=== PATIENT | female | born 1985 | race Caucasian/White ===

== ENCOUNTER 2020-03-02 17:07 | Emergency (ER) | payer OTHER, MEDICAID, SELFPAY ==
[2020-03-02 17:38] VITALS: BP 109/61; PULSE 89; RESP 16; TEMP 37; O2SAT 100; BMI 22.2
--- NOTE | 2020-03-02 17:57 | DI.US.S_ITS ---
PROCEDURE: US OB <= 14 WEEKS FETUS INDICATIONS: BLEEDING; HX ECTOPIC OUTSIDE/PRIOR DATING DATA: Last menstrual period (LMP): 01/10/20 . LMP-based estimated date of delivery (SHAAN): 10/16/20 . First dating scan (date and location): 03/02/20 . Estimated date of delivery (SHAAN) from first dating scan: 10/26/20 . TECHNIQUE: Real-time scanning was performed of the fetus and maternal pelvic organs, with image documentation. Endovaginal scanning was also performed to better visualize the fetus and maternal ovaries. COMPARISON: None. FINDINGS: Embryo: Single living intrauterine fetus is present with a crown-rump length measuring 0.4 cm, 6 weeks 0 days. There is grossly present cardiac motion however unable to detect with M-mode probably due to early gestational age. Yolk sac is present. Measurement variability in dating: +/- 4 weeks by LMP, +/- 7 days by mean sac diameter (use before 6 weeks gestation if crown-rump length not able to be measured), +/- 5 days by crown-rump length (up to 8 weeks 6 days gestation), +/- 7 days by crown-rump length (up to 13 weeks 6 days gestation). Maternal organs: Ovaries unremarkable except for a 1.8 cm presumed left-sided corpus luteum . Limited images through the kidneys demonstrate no hydronephrosis. IMPRESSION: Single living intrauterine fetus. Gestational age measures approximately 6 weeks 0 days, with the SHAAN of 10/26/20. heart rate unmeasurable , which may be due to early gestational age. Recommend follow-up 1 week pelvic ultrasound. Dictated by: Ramírez Barksdale M.D. on 03/02/2020 at 19:45 Approved by: Ramírez Barksdale M.D. on 03/02/2020 at 19:49
[2020-03-02 18:27] LABS: Add Manual Diff / Slide Review NO; Basophils Absolute Auto 100 /uL (0-100); Basophils Percent Auto 0.7 % (0-2); Eosinophils Absolute Auto 400 /uL (0-450); Eosinophils Percent Auto 4.5 % (2-4); Hemoglobin 12.1 g/dL (12.0-16.0); Lymphocytes Absolute Auto 2300 /uL (1100-4500); Mean Corpuscular HGB Conc 34.6 % (30-36); Mean Corpuscular Hemoglobin 31.2 PG (26-34); Mean Corpuscular Volume 90.1 fL (80-100); Monocytes Absolute Auto 700 /uL (0-900); Monocytes Percent Auto 8.2 % (3-14); Neutrophils Absolute Auto 5400 /uL (1500-7000); Neutrophils Percent Auto 60.6 % (50-75); Platelet Count 319 X10^3/uL (150-400); Red Blood Cell Count 3.89 X10^6/uL (4.0-5.2); Red Cell Distribution Width 12.7 % (11.6-14.8); White Blood Cell Count 8.9 X10^3/uL (4.5-11.0)
--- NOTE | 2020-03-02 18:28 | ED.PREGNANCY ---
HPI - General Chief complaint: OB/Uterine Contractions Stated complaint: 6wks preg, bleeding now Time Seen by Provider: 03/02/20 18:27 Source: patient Mode of arrival: Ambulatory Limitations: no limitations History of Present Illness HPI Narrative: 35-year-old (1 TAB 1 ectopic ) at 6 weeks based on ovulation and LMP with a planned presents with bleeding for the last 12 hours. She initially noted some spotting and now is having more red bleeding. Not noticing any cramping at this time. Was not associated with sex or any other type of trauma. She is not having any acute urinary symptoms and has not been recently constipated or having any hemorrhoidal bleeding. Date of Last Menstrual Period: 01/20/20 Patient : Yes Related Data Previous Rx's Medication Instructions Recorded azithromycin [Zithromax Z-Toby] 1,000 mg PO QDAY #4 tab 05/22/16 Allergies Allergy/AdvReac Type Severity Reaction Status Date / Time cefaclor [CEFACLOR] Allergy Unknown Unverified 03/02/20 17:45 Review of Systems Review of Systems Narrative: Pertinent positive and negative findings as per HPI Remainder of review of systems is otherwise unremarkable for Constitutional: Fevers, chills, weakness ENT: No sore throat, neck pain, ear pain CV: Chest pain, palpitations, dyspnea on exertion Respiratory: Cough, wheeze, dyspnea GI: Nausea, vomiting, diarrhea, change in bowel habits, black or bloody stools : Dysuria, hematuria, flank pain Neuro: Syncope, dizziness, tingling PMFSH - Past Medical History [employer] history: Reports Therapeutic and Ectopic Date of Last Menstrual Period: 01/20/20 Patient : Yes Exam Narrative Exam Narrative: General: Healthy appearing, tearful but Able to give a complete and coherent history. Well-nourished well-developed HEENT: Moist mucous membranes, normal sclera with reactive pupils, Respiratory: Lungs are clear to auscultation, no wheezing no rales no rhonchi. Full and symmetrical air movement Cardiac: Regular rate and rhythm no murmurs no bruits Abdomen: Soft nontender good bowel tones, no flank pain Skin: Warm and dry, no rashes Neurologic: Grossly neurologically intact with no obvious asymmetries or abnormalities Genital: mild red blood from vagina, worse after pelvic us probe Psych: Cooperative, appropriate insight and affect Initial Vital Signs Initial Vital Signs: Vital Signs Temperature 98.6 F 03/02/20 17:38 Pulse Rate 89 03/02/20 17:38 Respiratory Rate 16 03/02/20 17:38 Blood Pressure 109/61 03/02/20 17:38 Pulse Oximetry 100 03/02/20 17:38 Course Orders Ordered: ED Orders 03/02/20 17:55 Urine Culture Stat Urine Microscopic Stat 03/02/20 17:57 US OB <= 14 weeks fetus Stat 03/02/20 18:17 ABO RH Type Stat Complete Blood Count AUTO DIFF Stat Comprehensive Metabolic Panel Stat HCG Quantitative /Beta subunit Stat Vital Signs Vital signs: Vital Signs - 8 hr 03/02/20 17:38 Temperature 98.6 F Pulse Rate 89 Respiratory Rate 16 Blood Pressure 109/61 Pulse Oximetry 100 MDM - OB/Uterine Contractions Medical Records Attestation: I reviewed the patient's medical records. Lab Data Attestation: I reviewed the patient's lab results. Result diagrams: 03/02/20 18:17 03/02/20 18:17 Labs: Lab Results 03/02/20 03/02/20 03/02/20 Range/Units 17:55 18:17 18:17 WBC 8.9 (4.5-11.0) X10^3/uL RBC 3.89 L (4.0-5.2) X10^6/uL Hgb 12.1 (12.0-16.0) g/dL Hct 35.0 L (36-46) % MCV 90.1 (80-100) fL MCH 31.2 (26-34) PG MCHC 34.6 (30-36) % RDW 12.7 (11.6-14.8) % Plt Count 319 (150-400) X10^3/uL Neut % (Auto) 60.6 (50-75) % Lymph % (Auto) 26.0 (25-40) % [place] % (Auto) 8.2 (3-14) % Eos % (Auto) 4.5 H (2-4) % Baso % (Auto) 0.7 (0-2) % Neut # (Auto) 5400 (4308-8721) /uL Lymph # (Auto) 2300 (4435-8508) /uL [place] # (Auto) 700 (0-900) /uL Eos # (Auto) 400 (0-450) /uL Baso # (Auto) 100 (0-100) /uL Sodium 136 L (137-145) mmol/L Potassium 3.6 (3.4-5.1) mmol/L Chloride 101 (98-107) mmol/L Carbon Dioxide 31 (22-32) mmol/L BUN 10 (7-17) mg/dL Creatinine 0.73 (0.52-1.04) mg/dL Estimated GFR > 60.0 (>60) mL/min BUN/Creatinine Ratio 13.7 (6-22) Glucose 63 L (70-100) mg/dL Calcium 9.0 (8.4-10.2) mg/dL Total Bilirubin 0.4 (0.2-1.3) mg/dL AST 24 (14-36) IU/L ALT 13 (<35) IU/L Alkaline Phosphatase 61 (38-126) U/L Total Protein 7.3 (6.3-8.2) g/dL Albumin 4.2 (3.5-5.0) g/dL Globulin 3.1 (1.7-4.1) g/dL Albumin/Globulin Ratio 1.4 (1.0-2.8) HCG, Quant 3681 mIU/mL Urine RBC 0-1/hpf (0-5/HPF) Urine WBC 10-30/hpf H (0-5/HPF) Ur Squamous Epith Cells 1-5 /hpf (0-5/HPF) Ur Transition Epith Cell 5-10/hpf H (0-5/HPF) Urine Bacteria Few (2-10) H (None) Urine Mucus 2+ H (Negative) Ur Culture Indicated? Specimen cultured Blood Type 03/02/20 Range/Units 18:17 WBC (4.5-11.0) X10^3/uL RBC (4.0-5.2) X10^6/uL Hgb (12.0-16.0) g/dL Hct (36-46) % MCV (80-100) fL MCH (26-34) PG MCHC (30-36) % RDW (11.6-14.8) % Plt Count (150-400) X10^3/uL Neut % (Auto) (50-75) % Lymph % (Auto) (25-40) % [place] % (Auto) (3-14) % Eos % (Auto) (2-4) % Baso % (Auto) (0-2) % Neut # (Auto) (1198-0190) /uL Lymph # (Auto) (7244-9418) /uL [place] # (Auto) (0-900) /uL Eos # (Auto) (0-450) /uL Baso # (Auto) (0-100) /uL Sodium (137-145) mmol/L Potassium (3.4-5.1) mmol/L Chloride (98-107) mmol/L Carbon Dioxide (22-32) mmol/L BUN (7-17) mg/dL Creatinine (0.52-1.04) mg/dL Estimated GFR (>60) mL/min BUN/Creatinine Ratio (6-22) Glucose (70-100) mg/dL Calcium (8.4-10.2) mg/dL Total Bilirubin (0.2-1.3) mg/dL AST (14-36) IU/L ALT (<35) IU/L Alkaline Phosphatase (38-126) U/L Total Protein (6.3-8.2) g/dL Albumin (3.5-5.0) g/dL Globulin (1.7-4.1) g/dL Albumin/Globulin Ratio (1.0-2.8) HCG, Quant mIU/mL Urine RBC (0-5/HPF) Urine WBC (0-5/HPF) Ur Squamous Epith Cells (0-5/HPF) Ur Transition Epith Cell (0-5/HPF) Urine Bacteria (None) Urine Mucus (Negative) Ur Culture Indicated? Blood Type O Positive Point of Care Testing Test Results Positive Urine Dip Bedside Urine Glucose Negative Bedside Urine Bilirubin + 1 Bedside Urine Ketone +/- 5 Urine Specific [place] 1.025 Bedside Urine Occult Blood +++ Bedside Urine pH 6.0 Bedside Urine Protein +/- 15 Bedside Urine Urobilinogen - Negative Bedside Urine Nitrite - Negative Bedside Urine Leukocytes +++ 500 Esterase MDM Narrative Medical decision making narrative: at 6 weeks with vaginal bleeding without cramping. She is O-positive will not need a RhoGAM shot. Ultrasound shows an intrauterine 6 week fetus with heart rate.. HCG is of appropriate for 6 weeks. Threatened will need repeat hCG in 3 days. Questions are answered. Patient is safe for home discharge Discharge Plan Departure Patient Disposition: Home Clinical Impression: , spontaneous threatened Instructions: DI for Miscarriage Activity Restrictions/Additional Instructions: Thank you for coming in today Any time there is bleeding or cramping with a there is a concern for miscarriage. Today, you do have a viable fetus in your uterus with a hormone level that is consistent with her dates. At this point all we have to do is wait and see what your body is going to tell us. If the bleeding slows and stops your may proceed beautifully. The bleeding is heavier and moves on to regular menstrual type bleeding then this is definitely a miscarriage. Repeating a hormone level(quantitative beta hCG) in 3 days can help us better understand what is happening. If the number doubles from today that is a sign of a healthy . If it is not increasing that fast or is decreasing that is fairly clear confirmation that this is going to progress to a miscarriage. At 6 weeks, our bodies are usually able to manage miscarriage as simply a very heavy period and you likely would not need a D&C. Please call [facility] tomorrow to let the OBGYN with who we have scheduled your new OB appointment know that your having bleeding anywhere seen in the emergency department. Let them know that a repeat quantitative hCG was recommended in 3 days so they can schedule that for you as an outpatient. If you have worsening bleeding, cramping or feeling dizzy or lightheaded or develop new or concerning symptoms please feel free to return to the emergency department Prescriptions: No Action azithromycin [Zithromax Z-Toby] 250 MG tablet 1,000 mg PO QDAY Qty: 4 RF: 0
[2020-03-02 18:39] LABS: RBC Urine 0-1/HPF (0-5/HPF); Squamous Epithelial Cell Urine 1-5 /HPF (0-5/HPF); Transitional Epi Cells Urine 5-10/HPF (0-5/HPF); WBC Urine 10-30/HPF (0-5/HPF)
[2020-03-02 18:40] LABS: Bacteria Urine Few (2-10); Culture Indicated Urine Specimen Cultured; Mucus Urine 2+ (Negative)
[2020-03-02 18:50] LABS: Alanine Aminotransferase 13 IU/L (<35); Albumin 4.2 g/dL (3.5-5.0); Albumin Globulin Ratio 1.4 (1.0-2.8); Alkaline Phosphatase 61 U/L (38-126); Aspartate Aminotransferase 24 IU/L (14-36); BUN Creatinine Ratio 13.7 (6-22); Bilirubin Total 0.4 mg/dL (0.2-1.3); Blood Urea Nitrogen 10 mg/dL (7-17); Carbon Dioxide 31 mmol/L (22-32); Chloride 101 mmol/L (98-107); Estimated Glomerular Filt Rate > 60.0 mL/min (>60); Globulin 3.1 g/dL (1.7-4.1); Glucose 63 mg/dL (70-100); HEMOLYSIS < 15 (0-50); Potassium 3.6 mmol/L (3.4-5.1); Sodium 136 mmol/L (137-145); Total Protein 7.3 g/dL (6.3-8.2)
[2020-03-02 19:15] LABS: HCG Quantitative /Beta subunit 3681 mIU/mL
[2020-03-02 19:45] VITALS: BP 125/75; PULSE 84; RESP 14; O2SAT 98
== END 2020-03-02 19:40 | disposition home or self-care (01) ==
PROVIDERS: Emergency Medicine; Emergency Provider Emergency Medicine
DX: O20.0 Threatened abortion (principal); Z3A.01 Less than 8 weeks gestation of pregnancy
CPT/HCPCS: 36415; 76801; 76817; 80053; 81003; 81015; 81025; 84702; 85025; 86900; 86901; 87077; 87086; 87186; 99283; 99284

== ENCOUNTER 2020-03-26 14:46 | Emergency (ER) | payer OTHER, MEDICAID, SELFPAY ==
[2020-03-26 14:48] VITALS: BP 136/85; PULSE 65; RESP 22; TEMP 36.6; O2SAT 96
== END 2020-03-26 15:12 | disposition left against medical advice (07) ==
PROVIDERS: Emergency Provider Emergency Medicine
DX: S61.412A Laceration without foreign body of left hand, initial encounter (principal)
CPT/HCPCS: 99281

== ENCOUNTER 2020-04-10 02:25 | Emergency (ER) | payer OTHER, MEDICAID, SELFPAY ==
--- NOTE | 2020-04-10 02:32 | ED_ITS ---
HPI - Female Genitourinary General Chief complaint: Urogenital-Female Stated complaint: something is wrong with my lady area Time Seen by Provider: 04/10/20 02:25 Source: patient Mode of arrival: Ambulatory Limitations: no limitations History of Present Illness HPI Narrative: 35F daily smoker with history of spontaneous on 03/02. She just finished her menses and states it was normal for her. She is here due to redness, some swelling, itching and irritation of her external genitalia. She denies vaginal discharge or pelvic pain. She's had no dysuria, frequency, or urgency. She denies fever, chills, or back pain. She is otherwise well and free of complaint. Related Data Previous Rx's Medication Instructions Recorded azithromycin [Zithromax Z-Toby] 1,000 mg PO QDAY #4 tab 05/22/16 fluconazole 150 mg PO Q3D #2 tab 04/10/20 Allergies Allergy/AdvReac Type Severity Reaction Status Date / Time cefaclor [CEFACLOR] Allergy Unknown Verified 04/10/20 02:38 Review of Systems Constitutional Constitutional: Denies chills, Denies fatigue, Denies fever(s), Denies frequent falls, Denies lethargy and Denies weakness Eyes Eyes: Denies change in vision, Denies eye discharge, Denies irritation and Denies loss of vision ENT Ears, Nose, Mouth, and Throat: Denies change in voice, Denies dizziness, Denies neck pain, Denies sore throat and Denies throat swelling Cardiovascular Cardiovascular: Denies chest pain, Denies irregular heart rhythm, Denies lightheadedness, Denies palpitations, Denies dyspnea, Denies dyspnea on exertion and Denies orthopnea Respiratory Respiratory: Denies cough, Denies dyspnea, Denies dyspnea on exertion and Denies wheezing Gastrointestinal Gastrointestinal: Denies abdominal pain, Denies change in bowel habits, Denies diarrhea, Denies nausea and Denies vomiting Genitourinary Genitourinary: Reports vaginal pruritus Musculoskeletal Musculoskeletal: Denies neck pain and Denies numbness Integumentary/Breasts Skin/Breast: Denies pruritus, Denies erythema, Denies rash and Denies wounds Neurologic Neurologic: Denies behavioral changes, Denies confusion, Denies dizziness, Denies frequent falls, Denies loss of vision, Denies numbness and Denies weakness Psychiatric Psychiatric: Denies anxiety, Denies behavioral changes, Denies confusion, Denies depression, Denies homicidal ideation and Denies suicidal ideation Endocrine Endocrine: Denies fatigue, Denies flushing and Denies palpitations Hematologic/Lymphatic Hematologic/Lymphatic: Denies easy bruising Allergic/Immunologic Allergic/Immunologic: Denies urticaria, Denies throat swelling and Denies wheezing Patient History tobacco type: cigarettes Substance Use Type: marijuana Exam Narrative Exam Narrative: GEN: AOx3 and in mild distress EYES: Pupils are equal, round, and reactive to light and accommodation. Extraoccular muscles are intact bilaterally. There is no subconjunctival hemorrhage or exudate. CHEST: Lungs are clear to auscultation bilaterally and free of wheezes, rales, or rhonchi. Heart rate is regular rhythm, there are no murmurs, clicks, rubs, or gallops. There is no chest wall tenderness. ABD: Abdomen is soft and nontender. There is no guarding or rebound. Bowel sounds are normal in all 4 quadrants. There is no mass or organomegaly. PELVIC: minimal erythema with itching or external genitalia. No obvious drainage, or bleeding on pelvic. Performed with patient permission and female nursing pressurised container filler at the bedside. EXT: Full painless ROM of all extremities with no loss of sensation or strength. SKIN: Warm, pink, and dry. No erythema or rash Initial Vital Signs Initial Vital Signs: Vital Signs Temperature 97.6 F 04/10/20 02:34 Pulse Rate 101 H 04/10/20 02:34 Respiratory Rate 16 04/10/20 02:34 Blood Pressure 128/79 04/10/20 02:34 Pulse Oximetry 100 04/10/20 02:34 Course Orders Ordered: ED Orders 04/10/20 02:38 Urinalysis and Microscopic Stat 04/10/20 03:05 Chlamydia/Gonoc/Myco Genital Stat Genital Culture Stat DORIS Prep Stat Discontinued Medications Fluconazole (Diflucan) 150 mg PO NOW ONE Stop: 04/10/20 03:10 Last Admin: 04/10/20 03:16 Dose: Not Given Documented by: CAROL Vital Signs Vital signs: Vital Signs - 8 hr 04/10/20 02:34 Temperature 97.6 F Pulse Rate 101 H Respiratory Rate 16 Blood Pressure 128/79 Pulse Oximetry 100 MDM - Female Genitourinary Lab Data Labs: Lab Results 04/10/20 Range/Units 02:38 Urine Color Yellow Urine Appearance Clear Urine pH 5.0 (4.5-8.0) Ur Specific [place] >=1.030 H (1.000-1.035) Urine Protein Trace H (Negative) Urine Glucose (UA) Negative (Negative) g/dL Urine Ketones 1+ H (NEGATIVE) Urine Occult Blood 2+ H (Negative) Urine Nitrate Negative (Negative) Urine Bilirubin Negative (NEGATIVE) Urine Urobilinogen 0.2 (0.2) E.U./dL Ur Leukocyte Esterase Negative (NEGATIVE) Urine RBC None seen (0-5/HPF) Urine WBC 1-5/hpf (0-5/HPF) Ur Squamous Epith Cells 5-10 /hpf H (0-5/HPF) Urine Bacteria Moderate (10-30) H (None) Ur Culture Indicated? Cult not indicated Point of Care Testing Test Results Negative Urine Dip Bedside Urine Glucose Negative Bedside Urine Bilirubin - Negative Bedside Urine Ketone +/- 5 Urine Specific [place] 1.030 Bedside Urine Occult Blood + Bedside Urine pH 6.0 Bedside Urine Protein - Negative Bedside Urine Urobilinogen - Negative Bedside Urine Nitrite - Negative Bedside Urine Leukocytes - Negative Esterase Discharge Plan Departure Patient Disposition: Home Clinical Impression: Candidal dermatitis Discharge Date/Time: 04/10/20 03:16 Instructions: Vaginal Yeast Infection Activity Restrictions/Additional Instructions: *You have been diagnosed with [ vaginal irritation, likely from mild yeast infection] *What to do: *Take medications as directed: Prescription sent to [facility] at your request *Follow up with your primary care provider in 2-3 days, call for an appointment. Let them know you were seen in the Emergency Department and that we ask that you be seen in follow up. If you don't have a primary doctor please consider calling the [facility] Resource Line mentioned below *Return to ER if you should have any new, worsening or concerning symptoms Prescriptions: New fluconazole 150 mg tablet 150 mg PO Q3D Qty: 2 RF: 0 No Action azithromycin [Zithromax Z-Toby] 250 MG tablet 1,000 mg PO QDAY Qty: 4 RF: 0 Referrals: [facility] [Outside]
[2020-04-10 02:34] VITALS: BP 128/79; PULSE 101; RESP 16; TEMP 36.4; O2SAT 100; BMI 21.9
[2020-04-10 02:53] LABS: RBC Urine None Seen (0-5/HPF)
[2020-04-10 02:54] LABS: Appearance Urine UA CLEAR; Bilirubin Urine UA NEGATIVE (NEGATIVE); Color Urine UA YELLOW; Glucose Urine UA NEGATIVE (Negative); Ketones Urine UA 1+ (NEGATIVE); Leukocyte Esterase Urine UA NEGATIVE (NEGATIVE); Nitrite Urine UA NEGATIVE (Negative); Occult Blood Urine UA 2+ (Negative); Protein Urine UA TRACE (Negative); Specific Gravity Urine UA >=1.030 (1.000-1.035); Urobilinogen Urine UA 0.2 E.U./dL (0.2)
[2020-04-10 03:31] LABS: Bacteria Urine Moderate (10-30); Culture Indicated Urine Cult Not Indicated; Squamous Epithelial Cell Urine 5-10 /HPF (0-5/HPF); WBC Urine 1-5/HPF (0-5/HPF)
[2020-04-13 09:36] LABS: Chlamydia trachomatis Positive (Negative); Mycoplasma genitalium Negative (Negative); Neisseria gonorrhoeae Negative (Negative)
== END 2020-04-10 03:16 | disposition home or self-care (01) ==
PROVIDERS: Emergency Provider Emergency Medicine
DX: B37.3 Candidiasis of vulva and vagina (principal)
CPT/HCPCS: 81001; 81003; 81025; 87070; 87205; 87220; 87252; 87491; 87591; 99282; 99283

== ENCOUNTER → 2021-06-07 07:52 | Outpatient (CLI) | payer OTHER, MEDICAID, SELFPAY ==
--- NOTE | 2021-06-07 07:55 | DI.US.S_ITS ---
PROCEDURE: US OB LIMITED INDICATIONS: DATING OUTSIDE/PRIOR DATING DATA: First dating scan (date and location): 06/07/2021. Estimated date of delivery (SHAAN) from first dating scan: 11/22/2021. The calculations are made using the ultrasound SHAAN of 11/22/2021. TECHNIQUE: Real-time scanning was performed of the fetus, with image documentation and biometric measurements. COMPARISON: None. FINDINGS: General: A single living intrauterine gestation is present. Presentation: Vertex. Placenta: Placental position is posterior , without previa. Amniotic fluid index: 10.3 cm, normal range is 5-24 cm. heart rate: 173 beats per minute. Maternal cervical canal: 3.0 cm long. Normal lower limit is 2.5 cm. biometrics: Biparietal diameter: 16 weeks 2 days Head circumference: 15 weeks 5 days Abdominal circumference: 16 weeks 4 days Femur length: 15 weeks 3 days Composite gestational age from present scan: 16 weeks 0 days Estimated weight and percentile: 142 g Other: Limited anatomic survey secondary to early gestational age. IMPRESSION: Single living IUP with age estimated at 16 weeks 0 days corresponding to ultrasound SHAAN of 11/22/2021. Limited anatomic survey secondary to early gestational age. Follow-up recommended. We strive to produce accurate, complete, and clear reports of imaging services. To assist us in improving patient care, this report was composed using standard report templates and voice recognition software. Therefore, it may contain abnormal punctuation, insertions and/or omissions. Occasional wrong-word or sound-alike substitutions may occur. Though we review the report and make efforts to correct it, we do recommend that the report be read carefully in proper context to recognize any text inaccuracies. Dictated by: Jaydon Serra [facility] Interpreted: Александр Edwards MD on 06/07/2021 at 10:08 Transcribed by: CHERYL on 06/07/2021 at 10:11 Approved by: Александр Edwards M.D. on 06/07/2021 at 13:51
== END ==
PROVIDERS: Referring Provider Obstetrics & Gynecology; Visit Provider Obstetrics & Gynecology
DX: Z36.87 Encounter for antenatal screening for uncertain dates (principal); Z3A.16 16 weeks gestation of pregnancy
CPT/HCPCS: 76815

== ENCOUNTER → 2021-06-13 17:36 | Outpatient (CLI) | payer OTHER, MEDICAID, SELFPAY ==
[2021-06-13 18:13] LABS: Add Manual Diff / Slide Review NO; Basophils Absolute Auto 0 /uL (0-100); Basophils Percent Auto 0.3 % (0-2); Eosinophils Absolute Auto 300 /uL (0-450); Eosinophils Percent Auto 3.1 % (2-4); Hematocrit 32.6 % (36-46); Hemoglobin 11.5 g/dL (12.0-16.0); Lymphocytes Absolute Auto 2200 /uL (1100-4500); Lymphocytes Percent Auto 20.2 % (25-40); Mean Corpuscular HGB Conc 35.2 % (30-36); Mean Corpuscular Hemoglobin 31.2 PG (26-34); Mean Corpuscular Volume 88.6 fL (80-100); Monocytes Absolute Auto 700 /uL (0-900); Monocytes Percent Auto 6.2 % (3-14); Neutrophils Absolute Auto 7700 /uL (1500-7000); Neutrophils Percent Auto 70.2 % (50-75); Platelet Count 359 X10^3/uL (150-400); Red Blood Cell Count 3.68 X10^6/uL (4.0-5.2)
[2021-06-14 06:10] LABS: Varicella IgG Antibody 702 index (Immune >165)
[2021-06-14 08:17] LABS: RPR Screen Non Reactive (Non Reactive)
[2021-06-14 18:09] LABS: Hepatitis B Surface Antigen NEGATIVE s/c (NEGATIVE); Rubella Antibody IgG 62.8 IU/mL (>15)
[2021-06-14 18:10] LABS: HIV 1 & 2 Ab/Ag 4th Gen Combo NEGATIVE (NEGATIVE); Hep C Virus Ab w/Reflex Quant NEGATIVE s/c (NEGATIVE)
== END ==
PROVIDERS: Referring Provider Obstetrics & Gynecology; Visit Provider Obstetrics & Gynecology
DX: Z34.80 Encounter for supervision of other normal pregnancy, unspecified trimester (principal)
CPT/HCPCS: 36415; 80055; 86787; 86803; 86850; 86900; 86901; 87389

== ENCOUNTER → 2021-07-03 13:36 | Outpatient (CLI) | payer OTHER, MEDICAID, SELFPAY ==
[2021-07-03 15:56] LABS: UR Morphine/Opiate cutoff 300 Negative (Negative); Ur Creatinine Normal (Normal); Ur Specific Gravity Normal (Normal); Urine Amphetamines Positive (Negative); Urine Cocaine Negative (Negative); Urine Methamphetamines Positive (Negative); Urine Tetrahydrocannabinol Negative (Negative); Urine pH Normal (Normal)
[2021-07-03 15:57] LABS: Urine Barbiturates Negative (Negative); Urine Benzodiazepines Negative (Negative); Urine MDMA Negative (Negative); Urine Methadone Negative (Negative); Urine Oxycodone Negative (Negative); Urine Phencyclidine Negative (Negative); Urine Tricyclic Antidepressant Negative (Negative)
[2021-07-03 17:19] LABS: Urine N gonorrhoeae NOT DETECTED
[2021-07-03 17:29] LABS: Urine Chlamydia NOT DETECTED
== END ==
PROVIDERS: Referring Provider Obstetrics & Gynecology; Visit Provider Obstetrics & Gynecology
DX: Z34.82 Encounter for supervision of other normal pregnancy, second trimester (principal)
CPT/HCPCS: 80305; 87491; 87591

== ENCOUNTER → 2021-07-31 12:12 | Outpatient (CLI) | payer OTHER, MEDICAID, SELFPAY ==
--- NOTE | 2021-07-31 12:13 | DI.US.S_ITS ---
PROCEDURE: US OB >= 14 WEEKS FETUS INDICATIONS: 20 Week Anatomy Scan OUTSIDE/PRIOR DATING DATA: Last menstrual period (LMP): Known. LMP-based estimated date of delivery (SHAAN): Unknown. First dating scan (date and location): 06/07/2021. Estimated date of delivery (SHAAN) from first dating scan: 11/22/2021. TECHNIQUE: Real-time scanning was performed of the fetus, with image documentation and biometric measurements. Endovaginal scanning: Non COMPARISON: None. FINDINGS: General: A single living intrauterine gestation is present. Presentation: Variable Placenta: Placental position is posterior , without previa. Amniotic fluid index: 16.3 cm, normal range is 5-24 cm. heart rate: 165 beats per minute. Maternal cervical canal: 3.9 cm long. Normal lower limit is 2.5 cm. biometrics: Biparietal diameter: 5.7 cm, 23 week 2 day Head circumference: 20.7 cm, 22 week 6 day Abdominal circumference: 18.9 cm, 23 week 5 day Femur length: 4 cm, 23 week 0 day Clinically estimated gestational age: 23 week 5 day Composite gestational age from present scan: 23 week 2 day Estimated weight and percentile: 586 g, 26th percentile Anatomic survey: Neuro: Ventricles are non-dilated at less than 10 mm. Cisterna magna is normal at 3-11 mm. Cerebellum is normal in size and morphology. Nuchal skin fold: Normal at less than 6 mm between 14-21 weeks gestational age. Face: Nose and lips, facial profile are normal. Spine: No evidence for spina bifida. Heart: 4-chambered heart is present, with normal ventricular outflow tracts. Diaphragm: Diaphragm is intact. Stomach: Left-sided stomach is present. Kidneys: No hydronephrosis. Normal is less than 5 mm in 2nd trimester, less than 7 mm in 3rd trimester. Cord: 3-vessel cord . Insertion not well seen. Bladder: Normal in size. Extremities: All 4 extremities identified. IMPRESSION: Single live intrauterine consistent with 23 week 2 day gestation by current ultrasound. Placental cord insertion not well seen. Remainder of the anatomy within normal limits. Approved by: Jon Prabhakar M.D. on 07/31/2021 at 12:35
== END ==
PROVIDERS: Referring Provider Obstetrics & Gynecology; Visit Provider Obstetrics & Gynecology
DX: Z34.82 Encounter for supervision of other normal pregnancy, second trimester (principal); Z3A.23 23 weeks gestation of pregnancy
CPT/HCPCS: 76811

== ENCOUNTER → 2021-08-01 16:15 | Outpatient (CLI) | payer OTHER, MEDICAID, SELFPAY ==
[2021-08-01 19:23] LABS: UR Morphine/Opiate cutoff 300 Positive (Negative); Ur Creatinine Normal (Normal); Ur Specific Gravity Normal (Normal); Urine Amphetamines Positive (Negative); Urine Barbiturates Negative (Negative); Urine Benzodiazepines Positive (Negative); Urine Cocaine Negative (Negative); Urine MDMA Positive (Negative); Urine Methadone Negative (Negative); Urine Methamphetamines Positive (Negative); Urine Oxycodone Negative (Negative); Urine Phencyclidine Negative (Negative); Urine Tetrahydrocannabinol Negative (Negative); Urine Tricyclic Antidepressant Positive (Negative); Urine pH Normal (Normal)
== END ==
PROVIDERS: Visit Provider Obstetrics & Gynecology
DX: Z34.82 Encounter for supervision of other normal pregnancy, second trimester (principal); Z3A.23 23 weeks gestation of pregnancy
CPT/HCPCS: 80305

== ENCOUNTER → 2021-08-29 19:13 | Outpatient (ROUT) | payer OTHER, MEDICAID, SELFPAY ==
[2021-08-29 19:28] LABS: Ur Creatinine Normal (Normal); Ur Specific Gravity Normal (Normal); Urine Tetrahydrocannabinol Negative (Negative); Urine pH Normal (Normal)
[2021-08-29 19:29] LABS: UR Morphine/Opiate cutoff 300 Negative (Negative); Urine Amphetamines Positive (Negative); Urine Barbiturates Negative (Negative); Urine Benzodiazepines Negative (Negative); Urine Cocaine Negative (Negative); Urine MDMA Negative (Negative); Urine Methadone Negative (Negative); Urine Methamphetamines Positive (Negative); Urine Oxycodone Negative (Negative); Urine Phencyclidine Negative (Negative); Urine Tricyclic Antidepressant Negative (Negative)
== END ==
PROVIDERS: Visit Provider Obstetrics & Gynecology
DX: Z34.83 Encounter for supervision of other normal pregnancy, third trimester (principal); Z3A.27 27 weeks gestation of pregnancy; F15.10 Other stimulant abuse, uncomplicated
CPT/HCPCS: 80305

== ENCOUNTER 2021-10-09 03:57 | Outpatient (CLI) | payer OTHER, MEDICAID, SELFPAY | END 2021-10-09 04:57 | disposition home or self-care (01) | LOC: LABOR 04:01 → OB 10-11 07:25 | PROVIDERS: PCP Obstetrics & Gynecology; Referring Provider Obstetrics & Gynecology; Visit Provider Obstetrics & Gynecology | DX: Z03.71 Encounter for suspected problem with amniotic cavity and membrane ruled out (principal); O09.523 Supervision of elderly multigravida, third trimester; Z3A.33 33 weeks gestation of pregnancy | CPT/HCPCS: 59025; G0378; G0379 ==

== ENCOUNTER 2021-11-12 03:16 | Outpatient (CLI) | payer OTHER, MEDICAID, SELFPAY ==
[2021-11-12 04:26] VITALS: BP 123/80; PULSE 100; RESP 20; TEMP 36.7
== END 2021-11-12 04:20 | disposition home or self-care (01) ==
LOC: LABOR 03:27 → OB 16:04
PROVIDERS: PCP Obstetrics & Gynecology; Referring Provider Obstetrics & Gynecology; Visit Provider Obstetrics & Gynecology
DX: Z03.71 Encounter for suspected problem with amniotic cavity and membrane ruled out (principal); O99.323 Drug use complicating pregnancy, third trimester; F15.90 Other stimulant use, unspecified, uncomplicated; Z3A.38 38 weeks gestation of pregnancy
CPT/HCPCS: 59025; 84112; G0378; G0379

== ENCOUNTER 2021-11-13 15:54 | Inpatient (IN) | payer OTHER, MEDICAID, SELFPAY ==
[2021-11-13 16:47] LABS: Add Manual Diff / Slide Review NO; Basophils Absolute Auto 100 /uL (0-100); Basophils Percent Auto 0.5 % (0-2); Eosinophils Absolute Auto 400 /uL (0-450); Eosinophils Percent Auto 2.6 % (2-4); Hematocrit 33.6 % (36-46); Hemoglobin 11.7 g/dL (12.0-16.0); Lymphocytes Absolute Auto 1800 /uL (1100-4500); Lymphocytes Percent Auto 11.2 % (25-40); Mean Corpuscular HGB Conc 34.7 % (30-36); Mean Corpuscular Hemoglobin 30.3 PG (26-34); Mean Corpuscular Volume 87.4 fL (80-100); Monocytes Absolute Auto 1000 /uL (0-900); Monocytes Percent Auto 6.1 % (3-14); Neutrophils Absolute Auto 12900 /uL (1500-7000); Neutrophils Percent Auto 79.6 % (50-75); Platelet Count 326 X10^3/uL (150-400); Red Blood Cell Count 3.84 X10^6/uL (4.0-5.2); Red Cell Distribution Width 14.5 % (11.6-14.8); White Blood Cell Count 16.2 X10^3/uL (4.5-11.0)
[2021-11-13 17:37] LABS: Ur Creatinine Normal (Normal); Ur Specific Gravity Normal (Normal); Urine Tetrahydrocannabinol Negative (Negative); Urine pH Normal (Normal)
[2021-11-13 17:38] LABS: UR Morphine/Opiate cutoff 300 Negative (Negative); Urine Amphetamines Positive (Negative); Urine Barbiturates Negative (Negative); Urine Benzodiazepines Negative (Negative); Urine Cocaine Negative (Negative); Urine MDMA Negative (Negative); Urine Methadone Negative (Negative); Urine Methamphetamines Positive (Negative); Urine Oxycodone Negative (Negative); Urine Phencyclidine Negative (Negative); Urine Tricyclic Antidepressant Negative (Negative)
[2021-11-13] MEDS: LACTATED RINGERS 1,000 ML 1000 ML IV (17:40)
[2021-11-13 17:41] LABS: COVID19 -Nasal RAPID Negative (Negative)
[2021-11-13] MEDS: OXYTOCIN PREMIX 30 UNIT/500 ML PLAST..BAG 200 UNIT IV (18:13)
--- NOTE | 2021-11-13 18:34 | PM.OBHP.IH.1 ---
OB HPI Date/Time Date of admission: 11/13/21 Date Patient Seen: 11/13/21 Time Patient Seen: 16:00 History of Present Condition Chief complaint: Eval of Labor SHAAN Calculator Estimated Delivery Date Method Current WG Current Estimate 11/22/21 Ultrasound #2 38w 5d Other Estimates 11/27/21 Ultrasound #1 38w 0d Estimated Gestational Age (weeks): 38+5 : 9 Para: 2 care: limited care, initiated at week # (19), number of visits (3) and pounds weight gain (37) Dating criteria OB: LMP confirmed by 2nd trimester US Ultrasounds: normal mid trimester US Medical complications OB: other (Drug use) Preadmission Labs Last OB Lab Results: Blood Type O Positive 06/13/21 17:43 06/13/21 Antibody Screen Negative 06/13/21 17:43 06/13/21 Hematocrit 33.6 % (36-46) L 11/13/21 16:25 11/13/21 Hemoglobin 11.7 g/dL (12.0-16.0) L 11/13/21 16:25 11/13/21 Hepatitis B Surface Antigen Negative s/c (NEGATIVE) 06/13/21 17:43 06/13/21 Hepatitis C Antibody Negative s/c (NEGATIVE) 06/13/21 17:43 06/13/21 Rubella Antibody 62.8 IU/mL (>15) 06/13/21 17:43 06/13/21 Varicella-Zoster IgG Antibody 702 index (Immune >165) 06/13/21 17:43 06/13/21 Group B Streptococcus (PCR) Pending 11/13/21 16:20 11/13/21 -: Chlamydia screen: negative and Gonorrhea screen: negative Prior (ies) Past Pregnancies Del. Date GA/Weeks Labor Lgth Wt Sex Route Outcome Anesthesia Place Delv Breastfeed Preg Comp Name 07/24/05 8+ elective 05/25/08 8+ elective 05/23/10 8 spontaneous 06/27/10 6 ectopic 07/04/11 37 2 5 lb 7 oz Female vaginal live - none IH 4 wks delivery Chidi 07/18/15 35 3 4 lb 14 oz Female vaginal live - epidural [facility] [place] 6-8 wks delivery Martha 04/30/17 8+ elective 06/01/20 6 spontaneous Delivery Date: 07/24/05 Last Updated by: Jamison Bo & Emely Delivery Date: 05/25/08 Last Updated by: Jamison Bo & Emely Delivery Date: 06/27/10 Last Updated by: Sandra Tinajero R.N. surgical - unsure which side Evaluation Evaluation Baseline heart rate: 135 Variability: Average (6-10) monitor accelerations: Present Monitor Decelerations: Variable Contraction Frequency (minutes): 3 Uterine Contraction Intensity: Strong/Firm Status: Category ll Dilation (cm): 4 Effacement (%): 100 station: 0 PFSH Medical History (Updated 08/29/21 @ 16:53 by Wilton Zhang MD) COVID-19 (~04/11/21) Ectopic Left patella fracture PID (acute pelvic inflammatory disease) UTI (urinary tract infection) Surgical History (Updated 06/13/21 @ 10:24 by Sandra Tinajero, RN) Ectopic Fx ankle Fx femur shaft-open History of dilation and curettage Family History (Updated 06/13/21 @ 08:40 by Sandra Tinajero RN) Father Diabetes mellitus ETOH abuse Social History marital status: unmarried,single number of children: 2 household members: friend(s) and none lives independently: Yes caregiver/support person: No housing: other (living with a friend) pets and animals: No education level: vocational occupational status: employed current occupational exposures/hazards: No seatbelt use: always water heater temp set < 120 deg: Yes working smoke detector in home: Yes fire extinguisher in home: Yes carbon monox detector in home: Yes firearms in home: No do you feel safe at home: Yes Smoking Status: Current every day smoker Smokeless tobacco user: other (vaping) quit status: considering quitting alcohol intake: former (ocassional) substance use type: former substance user (marijuana & Meth) during the past year weight has: remained stable well-balanced diet: daily or most days daily servings fruits/ve-4 caffeine: Yes (Rarely) eating out: rarely or never Type(s) of exercise: additional (Work active) Meds Home Medications and Allergies Home Medications Medication Instructions Recorded Confirmed Type prenat.vits,trice,ggq-tumo-wezqr 1 tab PO DAILY #1 tab 06/13/21 08/29/21 Rx Allergies Allergy/AdvReac Type Severity Reaction Status Date / Time cefaclor [CEFACLOR] Allergy Unknown Verified 08/29/21 16:18 OB Exam Narrative Exam Narrative: Generally: No acute distress FH: 37 weeks Ext: trace edema Objective Labs Result Diagrams: 11/13/21 16:25 Labs: Laboratory Results - last 24 hr 11/13/21 11/13/21 11/13/21 15:55 16:25 16:53 WBC 16.2 H RBC 3.84 L Hgb 11.7 L Hct 33.6 L MCV 87.4 MCH 30.3 MCHC 34.7 RDW 14.5 Plt Count 326 Neut % (Auto) 79.6 H Lymph % (Auto) 11.2 L [place] % (Auto) 6.1 Eos % (Auto) 2.6 Baso % (Auto) 0.5 Neut # (Auto) 02921 H Lymph # (Auto) 1800 [place] # (Auto) 1000 H Eos # (Auto) 400 Baso # (Auto) 100 U Opiates 300ng/mL cut Negative Ur Oxycodone Screen Negative Urine Methadone Screen Negative Ur Barbiturates Screen Negative U Tricyclic Antidepress Negative Ur Phencyclidine Scrn Negative Ur Amphetamines Screen Positive H U Methamphetamines Scrn Positive H Ur MDMA Scrn (Ecstasy) Negative U Benzodiazepines Scrn Negative Urine Cocaine Screen Negative U Marijuana (THC) Screen Negative SARS-CoV-2 (PCR) Negative Assessment and Plan Assessment and Plan Assessment and Plan narrative: Assessment: 36 year old at 38 +5 wks gestation with limited care in active labor Pos for Meth Plan: Expectant management to Peds notified Epidural was offered Time Spent with Patient Total time spent with greater than 50% in coordination of care (as documented) at patient's floor/unit and/or counseling patient:: 15-24 minutes
--- NOTE | 2021-11-13 18:42 | P.PCNOB_ITS ---
Events: Other (drug use, limited PNC) Labor & Delivery Delivery date: 11/13/21 Intrapartal Events: None Cervical ripening method: none Induction method: none Delivery monitor: external FHT and external uterine Route of delivery: Episiotomy description: None L&D Laceration Description: None Quantitative Blood Loss: 400 Anesthesia Type: None Complications: None Narrative: Patient complete and pushed from 8 cm to complete in 3 minutes. At 1808, a live male delivered spontaneously in the [place] presentation. No nuchal cord. The remainder of the body delivered without difficulty and was placed on mom's abdomen. After 2 minutes, the cord was double clamped and cut due to brisk vaginal bleeding. Cord bloods were obtained. Pitocin was given in the IV fluids. The placenta delivered intact with a three-vessel cord at 18 14. Fundus was massaged to firm. No lacerations. QBL 400 cc. Apgars 9 at 1 minute and 9 at 5 minutes. Mom and infant stable to recovery. weight 6 lb 13 oz. [place] Baby 1: gender: Male Presentation: vertex Position: Right Occiput Anterior Placenta delivery description: Spontaneous Cord Vessel Description: 3 Vessels score (1 min): 9 score (5 min): 9 weight: 6 lb 13 oz Plan for aftercare: Routine care
[2021-11-13 18:56] LABS: Strep Grp B PCR POS for Grp B Strep
[2021-11-13] MEDS: KETOROLAC 30 MG/ML VIAL IV (19:11)
[2021-11-13] MEDS: ACETAMINOPHEN 325 MG TABLET 650 MG PO (19:11)
[2021-11-13] MEDS: TRANEXAMIC ACID 1,000 MG in SODIUM CHLORIDE 0.9% 100 ML 200 MG IV (21:45)
[2021-11-14] MEDS: KETOROLAC 30 MG/ML VIAL IV ×2 (00:54→07:39)
[2021-11-14] MEDS: ACETAMINOPHEN 325 MG TABLET 650 MG PO ×3 (00:54→23:15)
[2021-11-14 06:09] LABS: Hematocrit 28.1 % (36-46); Hemoglobin 9.4 g/dL (12.0-16.0)
[2021-11-14 07:39] VITALS: TEMP 36.7
[2021-11-14] MEDS: PRENATAL VIT,CALC/IRON/FOLIC 1 TABLET 1 TAB PO (09:46)
[2021-11-14] MEDS: DOCUSATE 100 MG CAPSULE PO (09:46)
[2021-11-14] MEDS: LACTATED RINGERS 1,000 ML 100 ML IV ×2 (10:45→23:17)
[2021-11-14 16:29] VITALS: TEMP 36.2
[2021-11-14] MEDS: IBUPROFEN 600 MG TABLET PO ×2 (16:29→23:15)
--- NOTE | 2021-11-14 18:10 | PM.OBPN.1 ---
Subjective - OB Subjective Patient comments: no complaints, pain well controlled, tolerating diet and flatus present baby status: doing well [place] feeding status: exclusively bottle feeding Date Patient Seen: 11/14/21 Time Patient Seen: 18:13 Interval history: PPD #1 and doing well. is also stable and doing well. CPS visited today and discussions are ongoing re: aftercare for mother and baby. Exam Vital Signs (past 8 hours): - 11/14/21 16:29 Temperature 97.1 F L Const General: cooperative and comfortable Nutritional Appearance: average body habitus Orientation: alert and oriented x3 HENMT Head: normocephalic and atraumatic Ears: hearing grossly normal bilaterally Eyes General: appearance normal, both eyes and all related structures Neck Neck: normal visual inspection Resp Effort & Inspection: normal respiratory effort and able to speak in complete sentences GI Inspection: normal to inspection Palpation: soft, no hepatosplenomegaly and mass (Firm, minimally tender fundus, U-4) External Female Exam: other (Deferred) Extrem General: no calf tenderness Psych Appearance: grossly normal Objective Labs Result Diagrams: 11/14/21 05:45 Labs: Laboratory Results - last 24 hr 11/13/21 11/13/21 11/14/21 16:20 16:25 05:45 Hgb 9.4 L Hct 28.1 L Group B Strep (PCR) Pos for grp b strep H Blood Type O Positive Antibody Screen Negative Assessment & Plan Plan day: 1 plan OB: routine care Comments: Will keep overnight due complex social situation/maternal drug abuse with likely discharge of the mother in the AM but will no doubt remain under observation for several more days. Time Spent With Patient Time: Total time spent is greater than 50% in coordination of care (as documented) at patient's floor/unit and/or counseling patient: Time with patient: 15-24 minutes
[2021-11-15] MEDS: IBUPROFEN 600 MG TABLET PO ×2 (05:16→12:01)
[2021-11-15] MEDS: ACETAMINOPHEN 325 MG TABLET 650 MG PO ×2 (05:16→12:01)
--- NOTE | 2021-11-15 22:02 | PM.OBPN.1 ---
Subjective - OB Subjective Patient comments: no complaints, pain well controlled and tolerating diet baby status: doing well, nursing well and other (CPS involved) [place] feeding status: breast and bottle feeding Date Patient Seen: 11/15/21 Time Patient Seen: 09:30 Interval history: Patient is day # 2 status post spontaneous vaginal delivery. Mom's tox screen positive for methamphetamine. CPS appointment via zoom tomorrow. Patient awaiting placement in rehab. Exam Narrative Exam Narrative: Generally: Patient is sitting up in bed, no acute distress Fundus: Firm at U -2 Extremities: No edema, negative Homans Objective Labs Result Diagrams: 11/14/21 05:45 Assessment & Plan Plan day: 2 plan OB: routine care and other (Await CPS and rehab placement) Time Spent With Patient Time: Total time spent is greater than 50% in coordination of care (as documented) at patient's floor/unit and/or counseling patient: Time with patient: less than 15 minutes
[2021-11-16] MEDS: IBUPROFEN 600 MG TABLET PO ×3 (03:59→17:22)
[2021-11-16] MEDS: ACETAMINOPHEN 325 MG TABLET 650 MG PO ×3 (03:59→17:22)
--- NOTE | 2021-11-16 16:32 | CM.SWNOTE ---
ARCHEOLOGIST Note ARCHEOLOGIST receives patient consult information from BECKI Lopez. Patient is 36 y/o female who gave to baby tereso Gambino on 11/13/21. Patient tested positive for Methamphetamines upon arrival to . L&D contact CPS for intake referral. Per L&D RN Mala, CPS GAVIN Acosta (Ph. # [phone]) assessed patient and baby for safety and set up Family Team Decision Making Meeting that took place today. Per Mala SEYMOUR, CPS determined that baby can d/c when medically clear with patient with safety plan in place. Patient to seek out [facility] inpatient treatment and reside with safety plan participants who will supervise and monitor patient's contact with baby. Plan: Patient to d/c to home when medically clear, patient plans to stay at with baby until baby is d/c. Patient to f/u with CPS safety plan and recommended [facility] inpatient services. Bonita Hull, SENIOR IT BUSINESS ANALYST
--- NOTE | 2021-11-17 08:18 | PM.OBDS.1 ---
Discharge Providers Provider Date of admission: 11/13/21 15:54 Discharge Date: 11/16/21 Primary care physician: Wilton Zhang MD Consults: 11/13/21 19:41 Consult to DIRECTOR INSTRUCTIONAL MATERIAL - Military Lawyer Routine Comment: 11/14/21 18:24 Consult to Food And Beverage Service Manager Routine Comment: Discharge provider: Isela Gonzalez MD Summary Hospital Course Date Patient Seen: 11/16/21 Time Patient Seen: 13:30 Diagnoses: 38-,5/7 weeks gestation Limited care Methamphetamine use Spontaneous vaginal delivery Hospital Course: Patient is a 36-year-old 3 para 3 who presented to Labor and delivery with ruptured membranes at 38-,5/7 weeks gestation. She had had 3 visits. She admitted to methamphetamine use. She had a spontaneous vaginal delivery without complication. She had no lacerations. She was discharged on day # 3. CPS is involved. Patient is going to rehab post discharge from the hospital. Peripartum Data Delivery Method: Natural Vaginal Laceration Description: None Episiotomy description: None Procedures: Spontaneous vaginal delivery complications: other (Psychosocial issues requiring prolonged stay) 1: Gender: Male Disposition of : home Status at Discharge Cognitive/behavioral status at discharge: oriented Overall status at discharge: patient is progressing back to baseline Time Spent with Patient Time attestation: Total time spent providing and/or coordinating discharge services: Time spent: Less than 30 minutes Objective Labs Result Diagrams: 11/14/21 05:45 Exam Narrative Exam Narrative: Generally: Patient lying in bed, no acute distress Fundus: Firm at U -2 Extremities: No edema, negative Homans Discharge Plan Discharge Plan Patient Disposition: Home Provider Discharge Comment: Call with fever, chills, or bleeding vaginally more than a pad in an hour Ibuprofen 600 mg every 6 hours as needed for cramping Tylenol 650 mg every 6 hours as needed Discharge orders & Medications Prescriptions: Continued prenat.vits,trice,[id number] Tablet 1 tab PO DAILY Qty: 1 0RF Follow up/Referrals: Isela Gonzalez MD [Physician] - 12/31/21 3:45 pm Diet/Activity/Treatments Diet: Regular Activity: Nothing in the vagina for 6 weeks Skin/Wound/Dressing Care Report to your healthcare provider any signs of infection, such as:: chills, fever, increased pain, unusual drainage and unusual redness Visit Report/Discharge Packet Instructions: DI for Labor and Delivery, Vaginal Discharge Data Primary Care Provider: Wilton Zhang
== END 2021-11-16 17:35 | disposition home or self-care (01) | DRG 560 ==
PROVIDERS: Obstetrics & Gynecology; Admitting Provider Obstetrics & Gynecology; PCP Obstetrics & Gynecology; Referring Provider Obstetrics & Gynecology; Visit Provider Obstetrics & Gynecology
DX: O99.324 Drug use complicating childbirth (principal); F15.90 Other stimulant use, unspecified, uncomplicated; O09.33 Supervision of pregnancy with insufficient antenatal care, third trimester; Z3A.38 38 weeks gestation of pregnancy; Z37.0 Single live birth; O99.334 Smoking (tobacco) complicating childbirth; F17.290 Nicotine dependence, other tobacco product, uncomplicated; Z20.822 Contact with and (suspected) exposure to COVID-19; Z03.71 Encounter for suspected problem with amniotic cavity and membrane ruled out; O99.323 Drug use complicating pregnancy, third trimester
CPT/HCPCS: 36415; 59025; 59050; 59409; 80305; 84112; 85014; 85018; 85025; 86850; 86900; 86901; 87635; 87653; C9803; G0378; G0379; J1885; J2590

== ENCOUNTER → 2022-05-10 14:45 | Outpatient (CLI) | payer OTHER, MEDICAID, SELFPAY ==
[2022-05-10 15:48] LABS: COVID19 -Nasal RAPID Negative (Negative)
== END ==
PROVIDERS: Visit Provider Obstetrics & Gynecology
DX: Z20.822 Contact with and (suspected) exposure to COVID-19 (principal); Z01.812 Encounter for preprocedural laboratory examination
CPT/HCPCS: 87635; C9803

== ENCOUNTER → 2022-05-13 11:17 | Day surgery (SDC) | payer OTHER, MEDICAID, SELFPAY ==
[2022-05-09 13:42] VITALS: BMI 24.5
== END ==
PROVIDERS: Referring Provider Obstetrics & Gynecology; Visit Provider Obstetrics & Gynecology

== ENCOUNTER 2022-05-14 11:03 | Emergency (ER) | payer OTHER, MEDICAID, SELFPAY ==
[2022-05-14] VITALS (15 sets, daily range): BP systolic 94–147; BP diastolic 56–88; PULSE 80–122; RESP 12–22; TEMP 38.1; O2SAT 93–99; BMI 21.9
[2022-05-14] MEDS: IBUPROFEN 400 MG TABLET 800 MG PO (11:42)
[2022-05-14] MEDS: ACETAMINOPHEN 325 MG TABLET 975 MG PO (11:42)
--- NOTE | 2022-05-14 11:49 | DI.RAD.S_ITS ---
PROCEDURE: XR CHEST 1V INDICATIONS: eval for PNA TECHNIQUE: One view of the chest was acquired. COMPARISON: None. FINDINGS: Surgical changes and devices: None. Lungs and pleura: Lungs are clear. No pleural effusions or pneumothorax. Mediastinum: Mediastinal contours appear normal. Heart size is normal. Bones and chest wall: No suspicious bony lesions. Overlying soft tissues appear unremarkable. IMPRESSION: No acute pulmonary process. Dictated by: Joyce Aldana M.D. on 05/14/2022 at 13:38 Approved by: Joyce Aldana M.D. on 05/14/2022 at 13:38
--- NOTE | 2022-05-14 11:59 | DI.CT.S_ITS ---
PROCEDURE: CT ABDOMEN PELVIS W CON INDICATIONS: Generalized abdominal pain TECHNIQUE: After the administration of IV contrast, axial sections were acquired from the lung bases to the pubic symphysis. Coronal and sagittal reformats were performed. For radiation dose reduction, the following was used: automated exposure control, adjustment of mA and/or kV according to patient size. COMPARISON: None. FINDINGS: Image quality: Excellent. Lung bases: Unremarkable. Heart: No significant findings. ABDOMEN: Liver: Liver is mildly enlarged with steatosis. Gallbladder: Unremarkable. Biliary ducts: Unremarkable. Pancreas: Unremarkable. Spleen: Unremarkable. Adrenal Glands: Unremarkable. Kidneys and Ureters: Unremarkable. Stomach and Bowel: Stomach, small bowel loops, and colon are unremarkable. Peritoneum: No abnormal intraperitoneal fluid. No free air. Ventral Wall: No hernia. Abdominal Nodes: No retroperitoneal or mesenteric adenopathy by size criteria. Vessels: Aorta and inferior vena cava are normal in size. PELVIS: Pelvic Organs: Unremarkable. Bladder: Unremarkable. Pelvic Nodes: No enlarged lymph nodes. Miscellaneous: No inguinal hernias are seen. Bones: Unremarkable. IMPRESSION: No acute intra-abdominal or pelvic process. Dictated by: Joyce Aldana M.D. on 05/14/2022 at 13:44 Approved by: Joyce Aldana M.D. on 05/14/2022 at 13:49
--- NOTE | 2022-05-14 11:59 | ED.GENADULT ---
HPI - General Adult General Chief complaint: Urogenital-Female Stated complaint: bad menstural cramping since morning Time Seen by Provider: 05/14/22 11:10 Source: patient Mode of arrival: Ambulatory History of Present Illness HPI narrative: Patient is a 37-year-old female who is here for evaluation of what was initially described as menstrual cramping. She states that her menstrual cycle actually ended approximately 1 week ago. She has had an ectopic in the past. She was scheduled to have a LEEP procedure done yesterday however this was canceled because she ate prior to the procedure. She states she woke up this morning with chills and body aches in the abdominal discomfort. No vaginal bleeding. No change in bowel habits. No urinary symptoms. No nausea vomiting. No skin rashes. Related Data Previous Rx's Medication Instructions Recorded prenat.vits,rtice,umi-gfov-kpeea 1 tab PO DAILY #1 tab 06/13/21 metronidazole 500 mg tablet 500 mg PO BID 7 days #14 tabs 05/14/22 nitrofurantoin 100 mg PO Q12H 5 days #10 caps 05/14/22 monohydrate/macrocrystals 100 mg capsule (Macrobid) Allergies Allergy/AdvReac Type Severity Reaction Status Date / Time cefaclor [CEFACLOR] Allergy Unknown Verified 05/14/22 13:03 Review of Systems Review of Systems ROS Unobtainable: All systems reviewed & are unremarkable except as noted in HPI and below Patient History Medical History COVID-19 (~04/11/21) Ectopic Left patella fracture PID (acute pelvic inflammatory disease) UTI (urinary tract infection) Surgical History (Updated 06/13/21 @ 10:24 by Sandra Tinajero RN) Ectopic Fx ankle Fx femur shaft-open History of dilation and curettage Family History (Updated 06/13/21 @ 08:40 by Sandra Tinajero RN) Father Diabetes mellitus ETOH abuse Social History marital status: unmarried,single number of children: 2 household members: friend(s) and none lives independently: Yes caregiver/support person: No housing: other (living with a friend) pets and animals: No education level: vocational occupational status: employed current occupational exposures/hazards: No seatbelt use: always water heater temp set < 120 deg: Yes working smoke detector in home: Yes fire extinguisher in home: Yes carbon monox detector in home: Yes firearms in home: No do you feel safe at home: Yes Smoking Status: Unknown if ever smoked Smokeless tobacco user: other (vaping) quit status: considering quitting alcohol intake: former (ocassional) substance use type: former substance user (marijuana & Meth) during the past year weight has: remained stable well-balanced diet: daily or most days daily servings fruits/ve-4 caffeine: Yes (Rarely) eating out: rarely or never Type(s) of exercise: additional (Work active) Smoking Status: Unknown if ever smoked tobacco type: cigarettes Substance Use Type: marijuana Exam Initial Vital Signs Initial Vital Signs: Vital Signs Temperature 100.5 F H 05/14/22 11:13 Pulse Rate 114 H 05/14/22 11:13 Respiratory Rate 22 05/14/22 11:13 Blood Pressure 147/88 H 05/14/22 11:13 Pulse Oximetry 99 05/14/22 11:13 Oxygen Delivery Method 05/14/22 11:13 Const General: cooperative, comfortable and No ill appearing HENCT Head: normal to inspection and normocephalic Resp Effort & Inspection: normal respiratory effort Auscultation: clear to auscultation bilaterally Cardio Rate: tachycardic Rhythm: regular rhythm GI Inspection: non-distended Palpation: No guarding and tender (Diffuse) External Female Exam: normal external appearance Speculum Exam - Vagina: abnormal vaginal discharge, not erythematous and No vaginal bleeding Speculum Exam - Cervix: nontender Bimanual Exam- Vagina & Uterus: normal palpation, No tender and no cervical motion tenderness OB/External & Speculum: No vaginal bleeding Back/Spine/Pelvis Other: Lower back discomfort Skin General: no rashes or lesions noted Neuro General: patient alert, patient awake, patient oriented x3 and moves all extremities Extrem General: capillary refill normal Psych Other: Anxious, Course Orders Ordered: ED Orders 05/14/22 11:23 Covid-19 + FLU A/B + RSV - PCR Stat 05/14/22 11:49 XR chest 1V Stat 05/14/22 11:59 CT abdomen pelvis w con Stat 05/14/22 12:10 Complete Blood Count AUTO DIFF Stat Comprehensive Metabolic Panel Stat Lactate (Lactic Acid) Stat Lipase Stat Procalcitonin Stat 05/14/22 12:47 Blood Culture Stat 05/14/22 15:05 DORIS Prep Stat Wet Prep Tric BV Destiny Stat 05/14/22 15:35 Chlamydia Gonorrhea PCR -URINE Stat Urine Culture Stat Urine Microscopic Stat Discontinued Medications Acetaminophen (Acetaminophen 325 Mg Tablet) 975 mg PO NOW ONE Stop: 05/14/22 11:31 Last Admin: 05/14/22 11:42 Dose: 975 mg Documented By: FLORY Azithromycin (Azithromycin 250 Mg Tablet) 1,000 mg PO NOW ONE Stop: 05/14/22 16:56 Last Admin: 05/14/22 17:08 Dose: 1,000 mg Documented By: MAIK Sodium Chloride (Normal Saline 0.9%) 1,000 mls @ 125 mls/hr IV CONT TOMAS Last Infusion: 05/14/22 17:19 Dose: 0 mls/hr Documented By: Admin: 05/14/22 12:30 Dose: 125 mls/hr Documented By: FLORY Ceftriaxone Sodium 1,000 mg/ (Sodium Chloride) 100 mls @ 200 mls/hr IV NOW ONE Stop: 05/14/22 12:52 Last Admin: 05/14/22 13:18 Dose: Not Given Documented By: FLORY Piperacillin Sod/Tazobactam (Sod 4.5 gm/ Sodium Chloride) 100 mls @ 200 mls/hr IV NOW ONE Stop: 05/14/22 13:16 Last Infusion: 05/14/22 14:17 Dose: 0 mls/hr Documented By: Admin: 05/14/22 13:34 Dose: 200 mls/hr Documented By: FLORY Ibuprofen (Ibuprofen 400 Mg Tablet) 800 mg PO NOW ONE Stop: 05/14/22 11:31 Last Admin: 05/14/22 11:42 Dose: 800 mg Documented By: FLORY Morphine Sulfate (Morphine 4 Mg/Ml Inj) 4 mg IV NOW ONE Stop: 05/14/22 12:00 Last Admin: 05/14/22 14:42 Dose: Not Given Documented By: MAIK Vital Signs Vital signs: Vital Signs - 8 hr 05/14/22 11:13 05/14/22 12:18 05/14/22 12:23 Temperature 100.5 F H Pulse Rate 114 H 122 H Respiratory Rate 22 Blood Pressure 147/88 H 118/60 Pulse Oximetry 99 96 Oxygen Delivery Method Room Air 05/14/22 12:23 05/14/22 12:30 05/14/22 12:30 Temperature Pulse Rate 117 H 116 H Respiratory Rate 12 19 Blood Pressure 120/58 L Pulse Oximetry 96 95 Oxygen Delivery Method 05/14/22 13:00 05/14/22 13:00 05/14/22 13:30 Temperature Pulse Rate 114 H 100 H Respiratory Rate 22 19 Blood Pressure 118/64 Pulse Oximetry 93 94 Oxygen Delivery Method Room Air 05/14/22 14:00 05/14/22 14:28 05/14/22 14:28 Temperature Pulse Rate 97 H 96 H Respiratory Rate 19 16 Blood Pressure 104/61 Pulse Oximetry 96 97 Oxygen Delivery Method Room Air Room Air 05/14/22 14:30 05/14/22 14:30 05/14/22 15:00 Temperature Pulse Rate 95 H Respiratory Rate 19 Blood Pressure 106/57 L 100/58 L Pulse Oximetry 95 Oxygen Delivery Method Room Air 05/14/22 15:00 05/14/22 15:30 05/14/22 15:30 Temperature Pulse Rate 97 H 93 H Respiratory Rate 15 Blood Pressure 104/61 Pulse Oximetry 99 98 Oxygen Delivery Method Room Air 05/14/22 16:00 05/14/22 16:00 05/14/22 16:30 Temperature Pulse Rate 80 Respiratory Rate 21 Blood Pressure 95/57 L 94/56 L Pulse Oximetry 99 Oxygen Delivery Method 05/14/22 16:30 05/14/22 17:00 05/14/22 17:03 Temperature Pulse Rate 86 90 Respiratory Rate 20 21 Blood Pressure 97/58 L Pulse Oximetry 98 98 Oxygen Delivery Method 05/14/22 17:03 Temperature Pulse Rate 96 H Respiratory Rate Blood Pressure Pulse Oximetry 98 Oxygen Delivery Method Room Air Medical Decision Making Medical Records Medical records reviewed: Yes I reviewed the patient's medical records. Lab Data Lab results reviewed: Yes I reviewed the patient's lab results. Result diagrams: 05/14/22 12:10 05/14/22 12:10 Labs: Lab Results 05/14/22 05/14/22 05/14/22 Range/Units 11: 12:10 12:10 WBC 19.5 H (4.5-11.0) X10^3/uL RBC 4.11 (4.0-5.2) X10^6/uL Hgb 12.0 (12.0-16.0) g/dL Hct 35.3 L (36-46) % MCV 85.8 (80-100) fL MCH 29.1 (26-34) PG MCHC 33.9 (30-36) % RDW 13.4 (11.6-14.8) % Plt Count 371 (150-400) X10^3/uL Neut % (Auto) 88.8 H (50-75) % Lymph % (Auto) 6.3 L (25-40) % [place] % (Auto) 3.8 (3-14) % Eos % (Auto) 0.6 L (2-4) % Baso % (Auto) 0.5 (0-2) % Neut # (Auto) 68270 H (1442-7744) /uL Lymph # (Auto) 1200 (1624-4670) /uL [place] # (Auto) 700 (0-900) /uL Eos # (Auto) 100 (0-450) /uL Baso # (Auto) 100 (0-100) /uL Sodium 138 (137-145) mmol/L Potassium 3.8 (3.4-5.1) mmol/L Chloride 100 (98-107) mmol/L Carbon Dioxide 26 (22-32) mmol/L BUN 11 (7-17) mg/dL Creatinine 0.80 (0.52-1.04) mg/dL Estimated GFR > 60 (>60) mL/min BUN/Creatinine Ratio 13.8 (6-22) Glucose 119 H (70-100) mg/dL Lactate (0.7-2.1) mmol/L Calcium 8.6 (8.4-10.2) mg/dL Total Bilirubin 0.4 (0.2-1.3) mg/dL AST 20 (14-36) IU/L ALT 17 (<35) IU/L Alkaline Phosphatase 109 (38-126) U/L Total Protein 7.7 (6.3-8.2) g/dL Albumin 4.0 (3.5-5.0) g/dL Globulin 3.7 (1.7-4.1) g/dL Albumin/Globulin Ratio 1.1 (1.0-2.8) Lipase 45 (23-300) U/L Procalcitonin 0.03 (<0.5) ng/mL Urine RBC (0-5/HPF) Urine WBC (0-5/HPF) Ur Squamous Epith Cells (0-5/HPF) Urine Bacteria (None) Ur Culture Indicated? SARS-CoV-2 (PCR) Negative (Negative) Influenza A (RT-PCR) Flu a negative (NEGATIVE) Influenza B (RT-PCR) Flu b negative (NEGATIVE) RSV (PCR) Negative (Negative) 05/14/22 05/14/22 Range/Units 12:10 15:35 WBC (4.5-11.0) X10^3/uL RBC (4.0-5.2) X10^6/uL Hgb (12.0-16.0) g/dL Hct (36-46) % MCV (80-100) fL MCH (26-34) PG MCHC (30-36) % RDW (11.6-14.8) % Plt Count (150-400) X10^3/uL Neut % (Auto) (50-75) % Lymph % (Auto) (25-40) % [place] % (Auto) (3-14) % Eos % (Auto) (2-4) % Baso % (Auto) (0-2) % Neut # (Auto) (7444-4387) /uL Lymph # (Auto) (3117-5257) /uL [place] # (Auto) (0-900) /uL Eos # (Auto) (0-450) /uL Baso # (Auto) (0-100) /uL Sodium (137-145) mmol/L Potassium (3.4-5.1) mmol/L Chloride (98-107) mmol/L Carbon Dioxide (22-32) mmol/L BUN (7-17) mg/dL Creatinine (0.52-1.04) mg/dL Estimated GFR (>60) mL/min BUN/Creatinine Ratio (6-22) Glucose (70-100) mg/dL Lactate 1.3 (0.7-2.1) mmol/L Calcium (8.4-10.2) mg/dL Total Bilirubin (0.2-1.3) mg/dL AST (14-36) IU/L ALT (<35) IU/L Alkaline Phosphatase (38-126) U/L Total Protein (6.3-8.2) g/dL Albumin (3.5-5.0) g/dL Globulin (1.7-4.1) g/dL Albumin/Globulin Ratio (1.0-2.8) Lipase (23-300) U/L Procalcitonin (<0.5) ng/mL Urine RBC 1-5/hpf (0-5/HPF) Urine WBC 5-10/hpf H (0-5/HPF) Ur Squamous Epith Cells 0-1 /hpf (0-5/HPF) Urine Bacteria Many (>30) H (None) Ur Culture Indicated? Specimen cultured SARS-CoV-2 (PCR) (Negative) Influenza A (RT-PCR) (NEGATIVE) Influenza B (RT-PCR) (NEGATIVE) RSV (PCR) (Negative) Point of Care Testing Test Results Negative Urine Dip Bedside Urine Glucose Negative Bedside Urine Bilirubin - Negative Bedside Urine Ketone - Negative Urine Specific [place] 1.015 Bedside Urine Occult Blood - Negative Bedside Urine pH 6.0 Bedside Urine Protein - Negative Bedside Urine Urobilinogen - Negative Bedside Urine Nitrite + Positive Bedside Urine Leukocytes - Negative Esterase Point of care testing: Point of Care Testing Test Results Negative Urine Dip Bedside Urine Glucose Negative Bedside Urine Bilirubin - Negative Bedside Urine Ketone - Negative Urine Specific [place] 1.015 Bedside Urine Occult Blood - Negative Bedside Urine pH 6.0 Bedside Urine Protein - Negative Bedside Urine Urobilinogen - Negative Bedside Urine Nitrite + Positive Bedside Urine Leukocytes - Negative Esterase Imaging Data Chest x-ray: Radiologist's Impression: [address] [address] XRay Report Signed Patient: Hoa Gambino V MR#: [id number] : 1985 Acct:[id number] Age/Sex: 37 / F Date of Service: 05/14/22 Loc: ED Accession Number: [id number] ?? Procedure: XR chest 1V Ordering Provider: Saul Santiago D.O. PROCEDURE:? XR CHEST 1V ? INDICATIONS:? eval for PNA ? TECHNIQUE:? One view of the chest was acquired.? ? COMPARISON:? None. ? FINDINGS:? ? Surgical changes and devices:? None.? ? Lungs and pleura:? Lungs are clear.? No pleural effusions or pneumothorax.? ? Mediastinum:? Mediastinal contours appear normal.? Heart size is normal.? ? Bones and chest wall:? No suspicious bony lesions.? Overlying soft tissues appear unremarkable.? ? IMPRESSION:? No acute pulmonary process. ? ? Dictated by: Joyce Aldana M.D. on 05/14/2022 at 13:38 ? ? Approved by: Joyce Aldana M.D. on 05/14/2022 at 13:38 CT scan - abdomen/pelvis: Radiologist's Impression: [address] [address] [address] Scan Report Signed Patient: Hoa Gambino V MR#: [id number] : 1985 Acct:[id number] Age/Sex: 37 / F Date of Service: 05/14/22 Loc: ED Accession Number: [id number] ?? Procedure: CT abdomen pelvis w con Ordering Provider: Saul Santiago D.O. PROCEDURE:? CT ABDOMEN PELVIS W CON ? INDICATIONS:? Generalized abdominal pain ? TECHNIQUE:? After the administration of IV contrast, axial sections were acquired from the lung bases to the pubic symphysis.? Coronal and sagittal reformats were performed.? For radiation dose reduction, the following was used:? automated exposure control, adjustment of mA and/or kV according to patient size. ? COMPARISON:? None. ? FINDINGS:? Image quality:? Excellent.? ? Lung bases:? Unremarkable.? ? Heart:? No significant findings. ? ? ABDOMEN: Liver:? Liver is mildly enlarged with steatosis. Gallbladder:? Unremarkable.? ? Biliary ducts:? Unremarkable.? ? Pancreas:? Unremarkable.? ? Spleen:? Unremarkable.? ? Adrenal Glands:? Unremarkable.? ? Kidneys and Ureters:? Unremarkable.? ? ? Stomach and Bowel:? Stomach, small bowel loops, and colon are unremarkable.? Peritoneum:? No abnormal intraperitoneal fluid.? No free air.? ? Ventral Wall: ? No hernia.? Abdominal Nodes:? No retroperitoneal or mesenteric adenopathy by size criteria.? Vessels:? Aorta and inferior vena cava are normal in size.? ? PELVIS: Pelvic Organs:? Unremarkable.? ? Bladder:? Unremarkable.? ? Pelvic Nodes: No enlarged lymph nodes.? Miscellaneous: No inguinal hernias are seen. ? ? ? Bones:? Unremarkable.? IMPRESSION:? ? No acute intra-abdominal or pelvic process. ? ? Dictated by: Joyce Aldana M.D. on 05/14/2022 at 13:44 ? ? Approved by: Joyce Aldana M.D. on 05/14/2022 at 13:49?? [facility] Narrative Medical decision making narrative: After the Tylenol and ibuprofen the patient's abdominal pain completely resolved. The CT scan her abdomen was negative. She was initially written for Rocephin however she does have an allergic reaction to a second-generation cephalosporin so she was given Zosyn. This was secondary to her presenting vital signs. She was never hypotensive. Pelvic exam was performed. No cervical motion tenderness. She does have discharge. Is positive for clue cells. She has bacterial vaginosis in the past and we will treat her for that as well. She also has a nitrite positive urine and she states she has ?some ?urinary symptoms on re-evaluation. She was also concern for chlamydia. Cultures were pending. Will treat for chlamydia and she was given azithromycin here. Sent home with Flagyl. Also sent home with Macrobid. No indication for admission hospital on I feel that we can hold on any radiologic studies to include a pelvic ultrasound because now she has completely resolved symptoms. Her presenting vital signs could very well have been stress reaction, tachycardia because of the discomfort that she was in because these improved with time. Discharge Plan Departure Patient Disposition: Home Clinical Impression: Urinary tract infection, Bacterial vaginosis Instructions: DI for Urinary Tract Infection (UTI), DI for Bacterial Vaginosis Activity Restrictions/Additional Instructions: Please take the antibiotics as directed. They were electronically transmitted to [employer]. Contact your primary doctor for a follow-up. Return to the emergency department for any new or worsening symptoms. Prescriptions: New metronidazole 500 mg tablet 500 mg PO BID 7 Days Qty: 14 0RF nitrofurantoin monohyd/m-cryst [Macrobid] 100 mg capsule 100 mg PO Q12H 5 Days Qty: 10 0RF Rx Instructions: must administer with a meal/food No Action prenat.vits,trice,xxi-fcqe-tudny Tablet 1 tab PO DAILY Qty: 1 0RF Referrals: Miscellaneous,Doctor, [Primary Care Provider] - Visit Report Forms: Patient Portal/API
[2022-05-14 12:07] LABS: Influenza A - CEPHEID Flu A NEGATIVE (NEGATIVE); Influenza B - CEPHEID Flu B NEGATIVE (NEGATIVE); Respiratory Syncytial Virus Negative (Negative)
[2022-05-14] MEDS: SODIUM CHLORIDE 0.9% 1,000 ML 125 ML IV (12:30)
[2022-05-14 12:32] LABS: Add Manual Diff / Slide Review NO; Basophils Absolute Auto 100 /uL (0-100); Basophils Percent Auto 0.5 % (0-2); Eosinophils Absolute Auto 100 /uL (0-450); Eosinophils Percent Auto 0.6 % (2-4); Hematocrit 35.3 % (36-46); Lymphocytes Absolute Auto 1200 /uL (1100-4500); Lymphocytes Percent Auto 6.3 % (25-40); Mean Corpuscular HGB Conc 33.9 % (30-36); Mean Corpuscular Hemoglobin 29.1 PG (26-34); Mean Corpuscular Volume 85.8 fL (80-100); Monocytes Absolute Auto 700 /uL (0-900); Monocytes Percent Auto 3.8 % (3-14); Neutrophils Absolute Auto 17300 /uL (1500-7000); Neutrophils Percent Auto 88.8 % (50-75); Platelet Count 371 X10^3/uL (150-400); Red Blood Cell Count 4.11 X10^6/uL (4.0-5.2); Red Cell Distribution Width 13.4 % (11.6-14.8); White Blood Cell Count 19.5 X10^3/uL (4.5-11.0)
[2022-05-14 12:34] LABS: COVID-19 CEPHEID 4-PLEX PCR Negative (Negative)
[2022-05-14 12:54] LABS: Alanine Aminotransferase 17 IU/L (<35); Albumin Globulin Ratio 1.1 (1.0-2.8); Alkaline Phosphatase 109 U/L (38-126); Aspartate Aminotransferase 20 IU/L (14-36); BUN Creatinine Ratio 13.8 (6-22); Bilirubin Total 0.4 mg/dL (0.2-1.3); Blood Urea Nitrogen 11 mg/dL (7-17); Calcium 8.6 mg/dL (8.4-10.2); Carbon Dioxide 26 mmol/L (22-32); Chloride 100 mmol/L (98-107); Estimated Glomerular Filt Rate > 60 mL/min (>60); Globulin 3.7 g/dL (1.7-4.1); Glucose 119 mg/dL (70-100); HEMOLYSIS < 15 (0-50); Lipase 45 U/L (23-300); Potassium 3.8 mmol/L (3.4-5.1); Sodium 138 mmol/L (137-145); Total Protein 7.7 g/dL (6.3-8.2)
[2022-05-14 12:57] LABS: Lactate (Lactic Acid) 1.3 mmol/L (0.7-2.1)
[2022-05-14 13:09] LABS: Procalcitonin 0.03 ng/mL (<0.5)
[2022-05-14] MEDS: PIPERACILLIN/TAZO 4.5 GM in SODIUM CHLORIDE 0.9% 100 ML IV (13:34)
[2022-05-14] MEDS: AZITHROMYCIN 250 MG TABLET 1000 MG PO (17:08)
[2022-05-14 17:33] LABS: Bacteria Urine Many (>30); Culture Indicated Urine Specimen Cultured; RBC Urine 1-5/HPF (0-5/HPF); Squamous Epithelial Cell Urine 0-1 /HPF (0-5/HPF); WBC Urine 5-10/HPF (0-5/HPF)
[2022-05-14 18:17] LABS: Urine N gonorrhoeae NOT DETECTED
[2022-05-14 18:30] LABS: Urine Chlamydia NOT DETECTED
== END 2022-05-14 17:19 | disposition home or self-care (01) ==
PROVIDERS: Emergency Provider Emergency Medicine
DX: N39.0 Urinary tract infection, site not specified (principal); N76.0 Acute vaginitis; R10.84 Generalized abdominal pain; Z20.822 Contact with and (suspected) exposure to COVID-19
CPT/HCPCS: 0241U; 36415; 71045; 74177; 80053; 81003; 81015; 81025; 83605; 83690; 84145; 85025; 87040; 87077; 87086; 87186; 87210; 87220; 87491; 87591; 96365; 99284; 99285; J2543; Q9967

== ENCOUNTER → 2022-07-12 14:38 | Outpatient (CLI) | payer OTHER, MEDICAID, SELFPAY ==
[2022-07-12 16:49] LABS: COVID19 -Nasal RAPID Negative (Negative)
== END ==
PROVIDERS: Visit Provider Obstetrics & Gynecology
DX: Z20.822 Contact with and (suspected) exposure to COVID-19 (principal); Z01.812 Encounter for preprocedural laboratory examination
CPT/HCPCS: 87635; C9803

== ENCOUNTER → 2022-07-17 14:40 | Outpatient (CLI) | payer OTHER, MEDICAID, SELFPAY ==
[2022-07-17 16:21] LABS: COVID19 -Nasal RAPID Negative (Negative)
== END ==
PROVIDERS: Visit Provider Obstetrics & Gynecology
DX: Z20.822 Contact with and (suspected) exposure to COVID-19; Z01.812 Encounter for preprocedural laboratory examination
CPT/HCPCS: 87635; C9803

== ENCOUNTER 2022-07-18 11:19 | Day surgery (SDC) | payer OTHER, MEDICAID, SELFPAY ==
[2022-07-16 07:33] VITALS: BMI 24.5
[2022-07-18] VITALS (7 sets, daily range): BP systolic 120–132; BP diastolic 85–98; PULSE 65–85; RESP 13–18; TEMP 36.2–37.2; O2SAT 98–100; BMI 24.5
--- NOTE | 2022-07-18 | PATH_ITS ---
[facility] Accession Number: [id number] No. of containers..01 Tissue . 01 Material submitted: . cervix - LEEP CONE STITCH AT 12 O'CLOCK . 01 Diagnosis: Cervix, LEEP: Cervical transformation zone with mild squamous atypia, consistent with low-grade squamous intraepithelial lesion (ANA-1). No high-grade squamous intraepithelial lesion identified. No ANA-1 identified at margins. No evidence of malignancy. Please see comment. MRV 07/24/20222 Local . 01 Comment: Extensive cautery artifact hinders the grading of the atypical squamous epithelium, and the presence of atypia at the margin. . 01 Electronically signed: . Nigel García MD, PhD, Pathologist NPI- [id number] . 01 Gross description: . The specimen is received in formalin labeled with the patient's name, , and LEEP cone biopsy of cervix, and consists of an oriented circular excision of cervix with a suture designating 12 o'clock per the requisition, and measuring 1.5 cm from 12 o'clock to 6 o'clock, 1.4 cm from 3 o'clock to 9 o'clock, and is excised to a depth of 0.5 cm. The ectocervix is pink-monique and wrinkled with a patent circular os measuring 0.4 cm in diameter. The endocervical margin is inked orange while the remaining stromal margins are inked blue. The specimen is radially sectioned and submitted entirely as follows: A1: 12 o'clock to 3 o'clock. A2: 3 o'clock to 6 o'clock. A3: 6 o'clock to 9 o'clock. A4: 9 o'clock to 12 o'clock. ([id number]) /MARVIN 07/19/2022 1113 Local . 01 Pathologist provided ICD-10: N87.0 . 01 CPT . 676778 Performed at: 01 [facility] [address] [place] [address], [place], [place] [id number] MD Paxton Powell MD Phone: [phone]
[2022-07-18] MEDS: LACTATED RINGERS 1,000 ML 100 ML IV (11:55)
--- NOTE | 2022-07-18 12:33 | SUR.OPER ---
Lithotomy on padded OR bed, head on pillow, arms secured on padded arm boards at <90 degrees abduction. Legs secured in padded yellow fins stirrups.
--- NOTE | 2022-07-18 12:39 | PM.HP.1 ---
History of Present Illness History of Present Illness Date Patient Seen: 07/18/22 Time Patient Seen: 12:41 Chief complaint: LEEP Narrative: Patient is a 37-year-old 9 para 2 who presents for a LEEP cone biopsy of the cervix due to high-grade dysplasia. She had a colposcopy back in January of 2022. She had abnormal areas at the 12 and 6 o'clock position. Both of those biopsies came back with focal high-grade dysplasia with adjacent low-grade dysplasia. The ECC was negative. Patient History Medical History COVID-19 (~04/11/21) Ectopic Left patella fracture PID (acute pelvic inflammatory disease) UTI (urinary tract infection) Surgical History (Updated 06/13/21 @ 10:24 by Sandra Tinajero RN) Ectopic Fx ankle Fx femur shaft-open History of dilation and curettage Family & Social History Family History (Updated 06/13/21 @ 08:40 by Sandra Tinajero RN) Father Diabetes mellitus ETOH abuse Social History: household members friend(s),none lives independently Yes caregiver/support person No Tobacco & Substance use: Smoking Status Current every day smoker alcohol intake current alcohol intake frequency 0-2 drinks per day Substance Use Type marijuana,other Meds Home Medications and Allergies Home Medications Medication Instructions Recorded Confirmed Type No Known Home Medications 07/18/22 07/18/22 History Allergies Allergy/AdvReac Type Severity Reaction Status Date / Time cefaclor [CEFACLOR] Allergy Unknown Verified 07/18/22 11:56 Exam Vital Signs (past 8 hours): - 07/18/22 11:40 Temperature 97.5 F L Pulse Rate 85 Respiratory Rate 18 Blood Pressure 126/85 Pulse Oximetry 98 Oxygen Delivery Method Room Air Oxygen Delivery Method Room Air Narrative Exam Narrative: HEENT: No thyromegaly, no anterior cervical or supraclavicular lymphadenopathy. Lungs:Clear to auscultation bilaterally, no wheezes. Cardiovascular: Regular rate and rhythm, no murmurs, rubs, or gallops. Abdomen: Well-healed scars. No hepatosplenomegaly. No masses palpable External genitalia: Normal Vagina: Normal Cervix: Normal Bimanual exam: 6 Week size anteverted uterus. Mobile. Rectal: No masses. Assessment & Plan Assessment & Plan narrative: Assessment: 37-year-old 9 para 2 with high-grade dysplasia at 12 and 6:00 a.m. by colposcopic biopsy Also low-grade dysplasia Plan: LEEP cone biopsy of the cervix. The risks, benefits, and alternatives to the procedure were explained to the patient. The risks including bleeding and infection. She also understands that she if she has a future she should let her doctor know about the LEEP procedure. It was explained to the patient that the LEEP could weaken the cervix and cause early delivery. She understands all of these risks and agrees to proceed. A full par Q was held and consent form was signed. COVID-19 COVID-19 status: Negative Result date/Date tested (Pos, Neg/Pending): 07/17/22 Time Spent With Patient Time with patient: less than 30 minutes Critical Care time: I spent a total of [] minutes of critical care time on this patient's care today; this time is exclusive of procedural time.
--- NOTE | 2022-07-18 12:45 | PM.PREOP ---
Pre-operative Note COVID-19 COVID-19 status: Negative Result date/Date tested (Pos, Neg/Pending): 07/17/22 Criteria for continued procedure: Non-surgical alternatives not available or appropriate per current SOC Interval Note History & Physical reviewed/Exam performed by Physician: Yes Changes to H&P: No H&P completed within 30 days and has changed as indicated here:: 07/18/22
[2022-07-18] MEDS: POTASSIUM IODIDE/IODINE 473 ML SOLUTION TOP (13:16)
--- NOTE | 2022-07-18 13:28 | PM.GYNOP.1 ---
Operative Date/Time/Diagnoses Date of procedure: 07/18/22 Time of procedure: 13:28 Pre-op diagnosis: High-grade dysplasia at the 6 and 12:00 o'clock positions by colposcopic biopsy Low-grade dysplasia as well Post-op diagnosis: same Procedure & Clinicians Procedure: Procedures Operation Date: 07/18/22 12:30 Actual Procedure Side Surgeon p LEEP Cone Bx of cervix Isela Gonzalez MD Indications: High grade dysplasia at the 6 and 12 o'clock positions by colposcopic biopsies Low grade dysplasia as well Surgeon: Isela Gonzalez Anesthesia Type: General (LMA) Operative Notes Findings: Lugol's light areas at 12 and 6 o'clock Closure Type: not applicable Specimen(s): other (LEEP cone biopsy of the cervix with stitch at 12 o'clock) Estimated blood loss (mL): 3 Procedure in detail: After informed consent was obtained, the patient was taken to the operating room where she was placed in the dorsal supine position. After adequate LMA general anesthesia was achieved, she was placed in the dorsal lithotomy position, and prepped and draped in the usual sterile fashion. A time-out was performed. A plastic coated bivalve speculum was placed into the vagina. The cervix was coated x3 with Lugol solution. There were Lugol's light areas at the 12 and 6:00. o'clock positions. Using the 15 mm loop, a LEEP cone biopsy was performed with settings at 60 cut and 40 cautery. The specimen tagged at the 12 o'clock position. Ball cautery was used for hemostasis. The plastic coated bivalve speculum was removed from the vagina. Three sources of suction were used. One attached to the plastic coated speculum. The second was attached to the Bovie device. The third was a Yankauer suction in the vagina. All personnel in the room had N95 masks in place. Sponge, lap, and instrument counts were correct x2. The patient tolerated the procedure well, and was taken to PACU in stable condition. Complications: none Post-operative Condition: stable Disposition: PACU Plan for aftercare: Home after recovery
== END 2022-07-18 14:29 | disposition home or self-care (01) ==
PROVIDERS: Referring Provider Obstetrics & Gynecology; Visit Provider Obstetrics & Gynecology
PROC: 0UBC7ZZ Excision of Cervix, Via Natural or Artificial Opening (ICD-10-PCS; CPT 57522; principal; 2022-07-18 12:30)
DX: N87.0 Mild cervical dysplasia (principal)
CPT/HCPCS: 57522; 81025; J1100; J1885; J2405; J2704

== ENCOUNTER 2022-09-06 11:01 | Emergency (ER) | payer OTHER, MEDICAID, SELFPAY ==
[2022-09-06 11:11] VITALS: BP 109/71; PULSE 97; RESP 15; TEMP 36.5; O2SAT 99; BMI 22.7
[2022-09-06 11:36] LABS: Bacteria Urine Moderate (10-30); Culture Indicated Urine Specimen Cultured; RBC Urine None Seen (0-5/HPF); Squamous Epithelial Cell Urine 1-5 /HPF (0-5/HPF); WBC Urine 1-5/HPF (0-5/HPF)
[2022-09-06 12:26] LABS: Pregnancy Test Urine Negative (Negative)
[2022-09-06] MEDS: DOXYCYCLINE HYCLATE 100 MG TABLET PO (12:27)
[2022-09-06] MEDS: FLUCONAZOLE 100 MG TABLET 150 MG PO (12:27)
[2022-09-06] MEDS: IBUPROFEN 400 MG TABLET 600 MG PO (12:27)
--- NOTE | 2022-09-06 12:33 | ED_ITS ---
HPI - Female Genitourinary <KIRIT Humphries - Last Filed: 09/06/22 15:15> General Chief complaint: Abdominal Pain Stated complaint: feels like she has an STD Time Seen by Provider: 09/06/22 12:04 Source: patient Mode of arrival: Ambulatory History of Present Illness HPI Narrative: This is a 37-year-old female presents to the emergency department complaining of abnormal vaginal discharge, history of chlamydia in the past, states that she thinks it is similar. She denies any fever, vaginal bleeding, chills diarrhea, or other complications. States that she has had vaginal itching, tried Monistat but states it did not help her and so she came in for testing in empiric treatment today. She has history of allergy to cefaclor, states that it caused her joints to swell. She has a [id number] infant, 2 other children, denies any unsafe living conditions, denies chance of . Patient reports that she does not have any genital wounds. Related Data Previous Rx's Medication Instructions Recorded fluconazole 150 mg tablet 150 mg PO Q3D #3 tabs 09/06/22 sulfamethoxazole 800 1 tab PO BID 7 days #14 tabs 09/06/22 mg-trimethoprim 160 mg tablet (Bactrim DS) Allergies Allergy/AdvReac Type Severity Reaction Status Date / Time cefaclor [CEFACLOR] Allergy Unknown Verified 09/06/22 11:12 Review of Systems <KIRIT Humphries - Last Filed: 09/06/22 15:15> Review of Systems ROS Unobtainable: All systems reviewed & are unremarkable except as noted in HPI and below Patient History <KIRIT Humphries - Last Filed: 09/06/22 15:15> Medical History COVID-19 (~04/11/21) Ectopic Left patella fracture PID (acute pelvic inflammatory disease) UTI (urinary tract infection) Surgical History Ectopic Fx ankle Fx femur shaft-open History of dilation and curettage Family History Father Diabetes mellitus ETOH abuse tobacco type: cigarettes alcohol intake frequency: holidays/special occasions only Substance Use Type: marijuana and other Exam <KIRIT Humphries - Last Filed: 09/06/22 15:15> Narrative Exam Narrative: Reviewed vitals signs and nursing notes. General: cooperative, in no acute distress, well groomed HEENT: symmetrical facial expressions, moist mucous membranes, neck is supple GI: abdomen soft, nontender to palpation in all quadrants, nondistended, without masses, rebound tenderness or CVA tenderness bilaterally. Cook Mess: Patient does not have tenderness to bilateral ovaries with external palpation, vaginal discharge is yellowish white in color, no external wounds MSK: moves all extremities, neurovascularly intact, no weakness, normal tone Skin: brisk capillary refill, without rash or wound Neuro: normal speech and cognition, A&O x3, ambulatory, clear speech Initial Vital Signs Initial Vital Signs: Vital Signs Temperature 97.7 F 09/06/22 11:11 Pulse Rate 97 H 09/06/22 11:11 Respiratory Rate 15 09/06/22 11:11 Blood Pressure 109/71 09/06/22 11:11 Pulse Oximetry 99 09/06/22 11:11 Oxygen Delivery Method Room Air 09/06/22 11:11 <Vanessa Sullivan DO - Last Filed: 09/08/22 12:22> Initial Vital Signs Initial Vital Signs: Vital Signs Temperature 97.7 F 09/06/22 11:11 Pulse Rate 97 H 09/06/22 11:11 Respiratory Rate 15 09/06/22 11:11 Blood Pressure 109/71 09/06/22 11:11 Pulse Oximetry 99 09/06/22 11:11 Oxygen Delivery Method Room Air 09/06/22 11:11 Course <KIRIT Hupmhries - Last Filed: 09/06/22 15:15> Orders Ordered: Discontinued Medications Doxycycline Hyclate (Doxycycline Hyclate 100 Mg Tablet) 100 mg PO NOW ONE Stop: 09/06/22 12:17 Last Admin: 09/06/22 12:27 Dose: 100 mg Documented By: AMU Fluconazole (Fluconazole 100 Mg Tablet) 150 mg PO NOW ONE Stop: 09/06/22 12:17 Last Admin: 09/06/22 12:27 Dose: 150 mg Documented By: AMU Ibuprofen (Ibuprofen 400 Mg Tablet) 600 mg PO NOW ONE Stop: 09/06/22 12:17 Last Admin: 09/06/22 12:27 Dose: 600 mg Documented By: AMU Ondansetron HCl (Ondansetron 4 Mg Odt) 4 mg SL NOW PRN PRN Reason: Nausea And Vomiting Ondansetron HCl (Ondansetron 4 Mg/2 Ml Inj) 4 mg IV NOW PRN PRN Reason: Nausea And Vomiting Trimethoprim/Sulfamethoxazole (Trimeth/Sulfa 160/800 (Ds) Tablet) 1 tab PO NOW ONE Stop: 09/06/22 12:38 Last Admin: 09/06/22 13:18 Dose: 1 tab Documented By: AMU Vital Signs Vital signs: Vital Signs - 8 hr 09/06/22 11:11 Temperature 97.7 F Pulse Rate 97 H Respiratory Rate 15 Blood Pressure 109/71 Pulse Oximetry 99 Oxygen Delivery Method Room Air <Vanessa Sullivan DO - Last Filed: 09/08/22 12:22> Orders Ordered: Discontinued Medications Doxycycline Hyclate (Doxycycline Hyclate 100 Mg Tablet) 100 mg PO NOW ONE Stop: 09/06/22 12:17 Last Admin: 09/06/22 12:27 Dose: 100 mg Documented By: AMU Fluconazole (Fluconazole 100 Mg Tablet) 150 mg PO NOW ONE Stop: 09/06/22 12:17 Last Admin: 09/06/22 12:27 Dose: 150 mg Documented By: AMU Ibuprofen (Ibuprofen 400 Mg Tablet) 600 mg PO NOW ONE Stop: 09/06/22 12:17 Last Admin: 09/06/22 12:27 Dose: 600 mg Documented By: AMU Ondansetron HCl (Ondansetron 4 Mg Odt) 4 mg SL NOW PRN PRN Reason: Nausea And Vomiting Ondansetron HCl (Ondansetron 4 Mg/2 Ml Inj) 4 mg IV NOW PRN PRN Reason: Nausea And Vomiting Trimethoprim/Sulfamethoxazole (Trimeth/Sulfa 160/800 (Ds) Tablet) 1 tab PO NOW ONE Stop: 09/06/22 12:38 Last Admin: 09/06/22 13:18 Dose: 1 tab Documented By: AMU Vital Signs Vital signs: Vital Signs - 8 hr 09/06/22 11:11 Temperature 97.7 F Pulse Rate 97 H Respiratory Rate 15 Blood Pressure 109/71 Pulse Oximetry 99 Oxygen Delivery Method Room Air MDM - Female Genitourinary <KIRIT Humphries - Last Filed: 09/06/22 15:15> Lab Data Labs: Lab Results 09/06/22 09/06/22 09/06/22 Range/Units 11:21 11:21 11:21 Urine RBC None seen (0-5/HPF) Urine WBC 1-5/hpf (0-5/HPF) Ur Squamous Epith Cells 1-5 /hpf (0-5/HPF) Urine Bacteria Moderate (10-30) H (None) Ur Culture Indicated? Specimen cultured Urine Test Negative (Negative) Ur Chlamydia DNA (PCR) Not detected N gonorrhoeae DNA (PCR) Not detected Point of Care Testing Test Results Negative Urine Dip Bedside Urine Glucose Negative Bedside Urine Bilirubin - Negative Bedside Urine Ketone - Negative Urine Specific [place] 1.020 Bedside Urine Occult Blood - Negative Bedside Urine pH 6.0 Bedside Urine Protein +/- 15 Bedside Urine Urobilinogen - Negative Bedside Urine Nitrite - Negative Bedside Urine Leukocytes + 70 Esterase Name: ImmanuelHoa V Age/Sex: 37/F Attend Dr: Anabel Stark Unit#: [id number] : 1985Location: ED Re09/06/22 Disch: Status: REG ER SPEC #: [id number] [place]: 09/06/22 STATUS: COMP REQ #: [id number] SPDESC: RECD: 09/06/22-[address]: Anabel Stark SOURCE: Vaginal ENTR: 09/06/22-[address]: Maico,Doctor FAX TO: ORDERED: Wet Prep Procedure Result Verified Site Wet Prep Tric BV Destiny Final 09/06/22- 1230 White blood cells No WBC seen Clue cells: None seen Yeast: None seen Trichomonas: None seen MDM Narrative Medical decision making narrative: Chief Complaint: Pelvic pain, abnormal vaginal discharge Independent historian: Patient Differential diagnoses include but are not limited to: Acute cystitis, pyelonephritis, STI, STD, pelvic inflammatory disease, ectopic , ovarian torsion, urinary tract infection obstructive uropathy I have independently reviewed the patient's vital signs and nursing notes as well as prior records if available. Pertinent lab findings reviewed: Wet prep is negative for WBCs, clue cells yeast and Trichomonas, UA is positive for urine bacteria without RBCs or WBCs Patient is nontoxic appearing, without systemic symptoms of illness including fever, vomiting. This is most likely UTI with yeast vaginitis however patient use Monistat recently so there is no yeast on her wet prep today. She was treated today with Bactrim and fluconazole. Encouraged her to follow up for a test of cure and repeat exam. Gonorrhea and chlamydia PCR via urine is negative. Patient endorses to follow up with her primary care provider as needed. Social considerations that may affect disposition: none Questions are addressed and there is agreement with the plan and for follow-up. Patient is appropriate for outpatient management. MIPS: This encounter doesn't have any diagnosis' associated with MIPS criteria. <Vanessa Sullivan, DO - Last Filed: 09/08/22 12:22> Lab Data Labs: Lab Results 09/06/22 09/06/22 09/06/22 Range/Units 11:21 11:21 11:21 Urine RBC None seen (0-5/HPF) Urine WBC 1-5/hpf (0-5/HPF) Ur Squamous Epith Cells 1-5 /hpf (0-5/HPF) Urine Bacteria Moderate (10-30) H (None) Ur Culture Indicated? Specimen cultured Urine Test Negative (Negative) Ur Chlamydia DNA (PCR) Not detected N gonorrhoeae DNA (PCR) Not detected Point of Care Testing Test Results Negative Urine Dip Bedside Urine Glucose Negative Bedside Urine Bilirubin - Negative Bedside Urine Ketone - Negative Urine Specific [place] 1.020 Bedside Urine Occult Blood - Negative Bedside Urine pH 6.0 Bedside Urine Protein +/- 15 Bedside Urine Urobilinogen - Negative Bedside Urine Nitrite - Negative Bedside Urine Leukocytes + 70 Esterase Discharge Plan Departure Patient Disposition: Home Clinical Impression: Vaginal discharge Urinary tract infection Qualifiers: Urinary tract infection type: acute cystitis Hematuria presence: without hemat uria Qualified Code(s): N30.00 - Acute cystitis without hematuria Instructions: Urinary Tract Infection Activity Restrictions/Additional Instructions: *You have been diagnosed with a urinary tract infection, and the gonorrhea/chlamydia test was negative for both. Thank you for your patients today, less treat you for yeast and the urinary tract infection. After this course of medication over the next 7 days, please follow-up for another swab if you have abnormal discharge. You can take another fluconazole in 3 days, you can take another 1 3 days after that. Please stay hydrated, take Tylenol ibuprofen as needed for your symptoms, it was a pleasure to meet you, come back any time. *What to do: *Please continue to take your regular medications as directed. [ x] New medication prescriptions sent to your pharmacy: [[facility] ] [ ] New medication written as a paper prescription [ ] No new medications given *Please follow up with your primary care provider in 2-3 days, call for an appointment. Let them know you were seen in the Emergency Department and that we asked that you be seen for follow-up. We will electronically transmit a record of today's note if your PCP is in our system *If you do not have a primary care provider please contact [phone] to establish care with one of [facility] primary care providers. *Return to Emergency Department if you should have any new, worsening, or concerning symptoms, such as [fever greater than 101F, chills, worsening pain, persistent vomiting or other bothersome symptoms]. Prescriptions: New sulfamethoxazole-trimethoprim [Bactrim DS] 800-160 mg tablet 1 tab PO BID 7 Days Qty: 14 0RF fluconazole 150 mg tablet 150 mg PO Q3D Qty: 3 0RF Rx Instructions: Take 1 tab every 3 days as needed for yeast infection Referrals: Miscellaneous,Doctor, MD [Primary Care Provider] - Stand Alone Forms: Patient Portal/API <Vanessa Sullivan DO - Last Filed: 09/08/22 12:22> [facility]: I was immediately available in the department for consultation. Supervised by Vanessa Sullivan DO
[2022-09-06 13:00] LABS: Urine N gonorrhoeae NOT DETECTED
[2022-09-06 13:01] LABS: Urine Chlamydia NOT DETECTED
[2022-09-06] MEDS: TRIMETH/SULFA 160/800 (DS) TABLET 1 TAB PO (13:18)
== END 2022-09-06 13:22 | disposition home or self-care (01) ==
PROVIDERS: Emergency Medicine; Emergency Provider Nurse Practitioner Critical Care Medicine
DX: N30.00 Acute cystitis without hematuria (principal)
CPT/HCPCS: 81003; 81015; 81025; 87077; 87086; 87186; 87210; 87491; 87591; 99283

== ENCOUNTER 2022-10-13 11:13 | Emergency (ER) | payer OTHER, MEDICAID, SELFPAY ==
[2022-10-13 11:18] VITALS: BP 156/114; PULSE 108; RESP 20; TEMP 36.4; O2SAT 100; BMI 24.2
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
== END 2022-10-13 12:01 | disposition home or self-care (01) ==
PROVIDERS: Emergency Provider Emergency Medicine
DX: R45.6 Violent behavior (principal); T40.414A Poisoning by fentanyl or fentanyl analogs, undetermined, initial encounter
CPT/HCPCS: 99281

== ENCOUNTER 2023-03-13 18:54 | Emergency (ER) | payer OTHER, MEDICAID, SELFPAY ==
[2023-03-13 18:59] VITALS: BP 140/93; PULSE 85; RESP 18; TEMP 36.6; O2SAT 100; BMI 21.9
[2023-03-13 20:56] LABS: Urine N gonorrhoeae NOT DETECTED
[2023-03-13 20:57] LABS: Urine Chlamydia NOT DETECTED
[2023-03-13 21:16] LABS: Bacteria Urine Moderate (10-30); Culture Indicated Urine Specimen Cultured; Mucus Urine 1+ (Negative); RBC Urine 0-1/HPF (0-5/HPF); Squamous Epithelial Cell Urine 5-10 /HPF (0-5/HPF); WBC Urine 1-5/HPF (0-5/HPF)
--- NOTE | 2023-03-13 21:54 | PC.NURSE ---
Pt called to come back to a room, no answer
== END 2023-03-13 23:25 | disposition left against medical advice (07) ==
PROVIDERS: Emergency Medicine; Emergency Provider Emergency Medicine
DX: N89.8 Other specified noninflammatory disorders of vagina (principal)
CPT/HCPCS: 81003; 81015; 81025; 87077; 87086; 87186; 87210; 87491; 87591; 99282

== ENCOUNTER 2023-05-16 10:37 | Emergency (ER) | payer OTHER, MEDICAID, SELFPAY ==
[2023-05-16 10:42] VITALS: BP 134/85; PULSE 97; RESP 15; TEMP 36.3; O2SAT 100; BMI 21.1
[2023-05-16 10:55] VITALS: BP 141/95; PULSE 92; O2SAT 100
--- NOTE | 2023-05-16 10:55 | PC.NURSE ---
Pt walked from WC to bed,stated I can bear weight on it and walk it just really hurts Pt changed into gown and sat on the bed. I left the room,pulled curtain when I heard her scream. Pt was leaning with her back against the bed,pt then layed down on the floor and urinated herself. Pt stated my knee just gave out when I sat on the bed Pt denies any back or neck pain at triage,and after being on the floor. Pt has CMS in bilateral feet. Dr Vee in room just after pt screamed,he assessed her and is entering orders.
--- NOTE | 2023-05-16 10:57 | DI.RAD.S_ITS ---
PROCEDURE: XR KNEE RT 3V INDICATIONS: knee injury TECHNIQUE: 3 views of the knee were acquired. COMPARISON: [facility], , KNEE 3V LEFT, 12/22/2015, 9:13. [facility], , KNEE 3V LEFT, 07/29/2009, 7:34. FINDINGS: Bones: No displaced fracture. No dislocation. Soft tissues: Small amount joint fluid is seen. IMPRESSION: Small joint fluid. No acute osseous abnormality. If there is high concern for further derangement, consider MRI evaluation. Dictated by: Greg Castorena M.D. on 05/16/2023 at 11:22 Approved by: Greg Castorena M.D. on 05/16/2023 at 11:23
[2023-05-16 11:00] VITALS: BP 138/91; PULSE 89; O2SAT 100
[2023-05-16] MEDS: KETOROLAC 30 MG/ML VIAL IM (11:16)
[2023-05-16] MEDS: OXYCODONE/ACETAMINOPHEN 5/325 TABLET 1 TAB PO (11:17)
[2023-05-16 11:30] VITALS: BP 131/90; PULSE 88; O2SAT 100
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
[2023-05-16 11:41] LABS: Ur Creatinine Normal (Normal); Ur Specific Gravity Normal (Normal); Urine pH Normal (Normal)
[2023-05-16 11:42] LABS: UR Morphine/Opiate cutoff 300 Negative (Negative); Urine Amphetamines Positive (Negative); Urine Barbiturates Negative (Negative); Urine Benzodiazepines Negative (Negative); Urine Cocaine Negative (Negative); Urine MDMA Positive (Negative); Urine Methadone Negative (Negative); Urine Methamphetamines Positive (Negative); Urine Oxycodone Negative (Negative); Urine Phencyclidine Negative (Negative); Urine Tetrahydrocannabinol Negative (Negative); Urine Tricyclic Antidepressant Negative (Negative)
[2023-05-16 11:57] LABS: Bacteria Urine Moderate (10-30); RBC Urine 1-5/HPF (0-5/HPF); Squamous Epithelial Cell Urine 5-10 /HPF (0-5/HPF); WBC Urine 5-10/HPF (0-5/HPF)
[2023-05-16 11:58] LABS: Amorphous Sediment Urine 3+; Calcium Oxalate Crystals Urine Few; Culture Indicated Urine Specimen Cultured
[2023-05-16 12:00] VITALS: BP 134/86; PULSE 86; O2SAT 100
--- NOTE | 2023-05-16 12:17 | PC.NURSE ---
Pt able to walk up and down the [place] with crutches. Pt is familiar with crutch use. Denies further questions.
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
[2023-05-16 12:21] VITALS: RESP 16
== END 2023-05-16 12:28 | disposition home or self-care (01) ==
PROVIDERS: Emergency Provider Emergency Medicine
DX: M23.91 Unspecified internal derangement of right knee (principal)
CPT/HCPCS: 29530; 73562; 80305; 81003; 81015; 81025; 87077; 87086; 87186; 96372; 99284; J1885

== ENCOUNTER 2024-01-05 23:51 | Emergency (ER) | payer OTHER, MEDICAID, SELFPAY ==
--- NOTE | 2024-01-05 23:35 | ED_ITS ---
HPI - General Adult General Chief complaint: Toxicology Problem Stated complaint: Unresponsive Time Seen by Provider: 01/05/24 23:51 History of Present Illness HPI narrative: 38-year-old woman with no significant medical history denies any prior narcotic use or issues with opioid use disorder who does state she drinks regularly tried smoking fentanyl this evening. She states she took 1 took and had an acute respiratory arrest. She was given 3 doses of Narcan by bystanders. When medics arrived she was awake and retching profusely with no food or vomitus left in her stomach. On arrival she complains of the retching only. She notes she was drinking alcohol tonight 2. Repeatedly states that this is the 1st time she is ever tried narcotics in his forearm. She has no other complaints at this time. Related Data Previous Rx's Medication Instructions Recorded fluconazole 150 mg tablet 150 mg PO Q3D #3 tabs 09/06/22 Allergies Allergy/AdvReac Type Severity Reaction Status Date / Time cefaclor [CEFACLOR] Allergy Unknown Verified 05/16/23 10:42 Review of Systems Review of Systems Narrative: Pertinent positive and negative findings as per HPI Patient History Medical History Ectopic COVID-19 (~04/11/21) UTI (urinary tract infection) PID (acute pelvic inflammatory disease) Left patella fracture Surgical History History of dilation and curettage Ectopic Fx ankle Fx femur shaft-open Family History Father Diabetes mellitus ETOH abuse Social History marital status: unmarried,single number of children: 2 household members: friend(s) and none lives independently: Yes caregiver/support person: No housing: other (living with a friend) pets and animals: No education level: vocational occupational status: employed current occupational exposures/hazards: No seatbelt use: always water heater temp set < 120 deg: Yes working smoke detector in home: Yes fire extinguisher in home: Yes carbon monox detector in home: Yes firearms in home: No do you feel safe at home: Yes Smoking Status: Current every day smoker Smokeless tobacco user: other (vaping) quit status: considering quitting alcohol intake: current substance use type: former substance user (marijuana & Meth) during the past year weight has: remained stable well-balanced diet: daily or most days daily servings fruits/ve-4 caffeine: Yes (Rarely) eating out: rarely or never Type(s) of exercise: additional (Work active) Exam Initial Vital Signs Initial Vital Signs: Vital Signs Pulse Rate 78 01/05/24 23:53 Respiratory Rate 16 01/05/24 23:53 Blood Pressure 135/80 01/05/24 23:53 Pulse Oximetry 97 01/05/24 23:53 Oxygen Delivery Method Room Air 01/05/24 23:53 General: Dry heaving, maintaining her airway and protecting it appropriately. She is able to speak and answer questions HEENT: Moist mucous membranes, normal sclera with reactive pupils, Respiratory: Lungs are clear to auscultation, no wheezing no rales no rhonchi. Full and symmetrical air movement Cardiac: Regular rate and rhythm no murmurs no bruits Abdomen: Soft, nontender, good bowel tones, no flank pain Skin: Warm and dry, no rashes, no track schaeffer Neurologic: Grossly neurologically intact with no obvious asymmetries or abnormalities Extremities: No trauma, well perfused Psych: Somnolent Course Orders Ordered: Discontinued Medications Sodium Chloride (Normal Saline 0.9%) 1,000 mls @ 1,000 mls/hr IV BOLUS ONE Stop: 01/06/24 00:53 Last Admin: 01/06/24 00:00 Dose: 1,000 mls/hr Documented By: GRISELDA Naloxone HCl (Naloxone 4 Mg Nasal [place]) 4 mg MISC DIRECTED ONE Stop: 01/06/24 01:04 Ondansetron HCl (Ondansetron 4 Mg/2 Ml Inj) 4 mg IV NOW ONE Stop: 01/05/24 23:55 Last Admin: 01/06/24 00:00 Dose: 4 mg Documented By: GRISELDA Vital Signs Vital signs: Vital Signs - 8 hr 01/05/24 23:53 Pulse Rate 78 Respiratory Rate 16 Blood Pressure 135/80 Pulse Oximetry 97 Oxygen Delivery Method Room Air Medical Decision Making [facility] Narrative Medical decision making narrative: 38-year-old woman who reportedly had a respiratory rest was purple and unresponsive after the 1st took of fentanyl that she would ever experienced. Reportedly has been drinking alcohol earlier in the evening. She was given 3 doses of intranasal Narcan by bystanders. Medics found her awake, maintaining her airway, saturations in the upper 90s and persistently dry heaving. She states that this is her 1st experience with narcotics. She was observed in the emergency department for 2 hours. After a L of fluid and Zofran the dry heaves have resolved, she is maintained consistently elevated oxygen saturations on room air throughout her entire stay. There was no evidence that the opioid Effexor out lasting Narcan effects at this point. She will be discharged home, questions are answered Discharge Plan Departure Patient Disposition: Home Clinical Impression: Overdose of opiate or related narcotic Qualifiers: Encounter type: initial encounter Injury intent: accidental or unintentional Qualified Code(s): T40.601A - Poisoning by unspecified narcotics, accidental (unintentional), initial encounter Instructions: DI for Substance Use Disorder, DI for Drug Overdose in Adults Activity Restrictions/Additional Instructions: I am sorry that you ended up in the emergency room this evening. I am very glad that your friends did have Narcan available It does seem that you are extraordinarily sensitive to opioids and should make a point of or avoiding recreational narcotics. Had your friends not had Narcan, you would have tonight I have given you take-home packet of Narcan and would encourage you to keep it available and make sure you are friends know where it is in case they needed for you or you need it for them If you find that you are getting worse or develop any new symptoms, please feel free to return to the emergency department for further evaluation. Prescriptions: No Action fluconazole 150 mg tablet 150 mg PO Q3D Qty: 3 0RF Rx Instructions: Take 1 tab every 3 days as needed for yeast infection Stand Alone Forms: Patient Portal/API
[2024-01-05 23:53] VITALS: BP 135/80; PULSE 78; RESP 16; O2SAT 97; BMI 23.3
[2024-01-06] MEDS: ONDANSETRON 4 MG/2 ML INJ IV
[2024-01-06] MEDS: SODIUM CHLORIDE 0.9% 1,000 ML 1000 ML IV
[2024-01-06] MEDS: NALOXONE 4 MG NASAL SPRAY MISC (02:46)
[2024-01-06 02:57] VITALS: BP 129/82; PULSE 63; RESP 16; O2SAT 100
== END 2024-01-06 02:59 | disposition home or self-care (01) ==
PROVIDERS: Emergency Provider Emergency Medicine
DX: T40.601A Poisoning by unspecified narcotics, accidental (unintentional), initial encounter (principal); F19.10 Other psychoactive substance abuse, uncomplicated
CPT/HCPCS: 96361; 96374; 99283; 99284; A9270; J2405

== ENCOUNTER 2024-05-20 15:38 | Emergency (ER) | payer OTHER, MEDICAID, SELFPAY ==
[2024-05-20] VITALS (14 sets, daily range): BP systolic 128–160; BP diastolic 83–105; PULSE 80–97; RESP 13–47; TEMP 36.7–36.8; O2SAT 97–100; BMI 22.3
--- NOTE | 2024-05-20 15:55 | EKG_ITS ---
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
--- NOTE | 2024-05-20 16:07 | PC.NURSE ---
During triage patient stuck tongue out and there was a circular blue on it. Patient immediately closed it when this RN asked about it and then patient reopened mouth and stated see now its gone. Provider notified. Unknown dosage of self reported fentenyl ingested.
--- NOTE | 2024-05-20 16:19 | PC.NURSE ---
This RN was informed by Officer Kayce that they are unarresting the patient and leaving the patient here due to the department being too thin and not having the staff to have someone just watch someone for that long.
--- NOTE | 2024-05-20 17:20 | ED.GENADULT ---
HPI - General Adult General Chief complaint: Toxicology Problem Stated complaint: [facility] for Group Home Time Seen by Provider: 05/20/24 16:22 Source: patient and police Mode of arrival: other History of Present Illness HPI narrative: 39-year-old female with history of substance abuse, initially presented for police clearance, apparently she threatened that she had swallowed a ?blue? of fentanyl and was concerned that she would have trouble breathing, not admitting to thoughts of wanting to hurt herself. No trouble breathing. No altered mental status. Requesting narcan. Related Data Previous Rx's Medication Instructions Recorded fluconazole 150 mg tablet 150 mg PO Q3D #3 tabs 09/06/22 Allergies Allergy/AdvReac Type Severity Reaction Status Date / Time cefaclor [CEFACLOR] Allergy Unknown Verified 05/16/23 10:42 Patient History Medical History Ectopic COVID-19 (~04/11/21) UTI (urinary tract infection) PID (acute pelvic inflammatory disease) Left patella fracture Surgical History History of dilation and curettage Ectopic Fx ankle Fx femur shaft-open Family History Father Diabetes mellitus ETOH abuse Social History marital status: unmarried,single number of children: 2 household members: friend(s) and none lives independently: Yes caregiver/support person: No housing: other (living with a friend) pets and animals: No education level: vocational occupational status: employed current occupational exposures/hazards: No seatbelt use: always water heater temp set < 120 deg: Yes working smoke detector in home: Yes fire extinguisher in home: Yes carbon monox detector in home: Yes firearms in home: No do you feel safe at home: Yes Smoking Status: Current every day smoker Smokeless tobacco user: other (vaping) quit status: considering quitting alcohol intake: current substance use type: former substance user (marijuana & Meth) during the past year weight has: remained stable well-balanced diet: daily or most days daily servings fruits/ve-4 caffeine: Yes (Rarely) eating out: rarely or never Type(s) of exercise: additional (Work active) Smoking Status: Current every day smoker tobacco type: vaping alcohol intake frequency: holidays/special occasions only Substance Use Type: other Exam Narrative Exam Narrative: GENERAL: Well-developed patient, in mild distress. HEAD: Atraumatic. Normocephalic. EYES: Pupils equal round and reactive. Extraocular motions intact. No scleral icterus. No injection or drainage. ENT: Nose without bleeding, purulent drainage. Throat without erythema, tonsillar hypertrophy or exudate. Airway patent. NECK: Trachea midline. Non tender CARDIOVASCULAR: Regular rate and rhythm without murmurs, gallops, or rubs. RESPIRATORY: Clear to auscultation. Breath sounds equal bilaterally. No wheezes, rales, or rhonchi. GASTROINTESTINAL: Abdomen soft, non-tender, nondistended. EXTREMITIES: No edema or joint tenderness. BACK: Nontender without deformity or crepitance. No flank tenderness. NEURO: AOx3. Motor functions grossly nonfocal SKIN: No rash or erythema of visible areas Initial Vital Signs Initial Vital Signs: Vital Signs Pulse Rate 93 H 05/20/24 15:41 Pulse Oximetry 100 05/20/24 15:41 Course Orders Ordered: ED Orders 05/20/24 16:05 EKG-12 Lead Stat Vital Signs Vital signs: Vital Signs - 8 hr 05/20/24 15:41 05/20/24 15:42 05/20/24 15:42 Temperature Pulse Rate 93 H 90 Respiratory Rate Blood Pressure 153/101 H Pulse Oximetry 100 100 Oxygen Delivery Method 05/20/24 15:46 05/20/24 16:00 05/20/24 16:00 Temperature 98.2 F Pulse Rate 83 85 Respiratory Rate 18 21 Blood Pressure 153/101 H 135/100 H Pulse Oximetry 100 98 Oxygen Delivery Method Room Air 05/20/24 16:30 05/20/24 16:32 05/20/24 16:32 Temperature Pulse Rate 84 91 H Respiratory Rate 17 26 H Blood Pressure 144/93 H Pulse Oximetry 100 100 Oxygen Delivery Method 05/20/24 16:57 05/20/24 16:59 05/20/24 17:00 Temperature Pulse Rate 97 H 94 H Respiratory Rate 47 H Blood Pressure 160/105 H Pulse Oximetry 100 Oxygen Delivery Method 05/20/24 17:00 05/20/24 17:30 05/20/24 17:30 Temperature Pulse Rate 81 89 Respiratory Rate 26 H Blood Pressure 142/95 H 143/96 H Pulse Oximetry 100 100 Oxygen Delivery Method 05/20/24 18:00 05/20/24 18:00 05/20/24 18:30 Temperature Pulse Rate 82 80 Respiratory Rate 14 13 Blood Pressure 135/86 Pulse Oximetry 100 100 Oxygen Delivery Method 05/20/24 18:30 05/20/24 19:00 05/20/24 19:00 Temperature Pulse Rate 87 Respiratory Rate 16 Blood Pressure 128/83 135/89 Pulse Oximetry 100 Oxygen Delivery Method 05/20/24 19:24 Temperature 98.1 F Pulse Rate 87 Respiratory Rate 18 Blood Pressure 135/89 Pulse Oximetry 97 Oxygen Delivery Method Room Air Medical Decision Making ECG Data Interpretation: Normal sinus rhythm with rate 85, no obvious ST segment elevation or depression changes. [place] 136, QRS 78, QTC 426. MDM Narrative Medical decision making narrative: Initial triage complaint for PD clearance, shortly after triage patient apparently had blue pill under her tongue that she swallow, stating that it was fentanyl product, stating that she will need Narcan, requesting Narcan, not intending to hurt herself, seems to be motivated to not be going to senior living. Denies thoughts of hurting herself or others. We will further observe for respiratory depression for now. PD aware. PD has released her from their custody, we will further observe for 4 hours. So far no airway compromise. Patient remains alert, no airway compromise, discharged home. Encouraged to avoid drug use. Discharge Plan Departure Patient Disposition: Home Clinical Impression: Drug ingestion Activity Restrictions/Additional Instructions: Non accidental ingestion of ?blue? fentanyl product after transport in from police Department, observation in the emergency department, make sure there is no need for Narcan with good respiratory function. Discharged home after multiple hours of observation, no decline in mental status, no problems with airway management. Police evaluation initially here, released from police custody, you apparently will be following up with police department. Encouraged to have your home existing supply of fentanyl nearby, if you or family or friends are using opiates, to administer if there is any concerns for respiratory depression. You stated that you had a supply of Narcan at home. Prescriptions: No Action fluconazole 150 mg tablet 150 mg PO Q3D Qty: 3 0RF Rx Instructions: Take 1 tab every 3 days as needed for yeast infection Referrals: Miscellaneous,Doctor, MD [Primary Care Provider] - Stand Alone Forms: Patient Portal/API/Survey
== END 2024-05-20 19:26 | disposition home or self-care (01) ==
PROVIDERS: Emergency Provider Emergency Medicine
DX: Z00.8 Encounter for other general examination (principal); T40.414A Poisoning by fentanyl or fentanyl analogs, undetermined, initial encounter
CPT/HCPCS: 93005; 99283; 99284